=== PATIENT | female | born 1960 | race Caucasian/White ===

== ENCOUNTER 2020-12-04 08:24 | Outpatient (REF) | payer OTHER, SELFPAY ==
--- NOTE | 2020-12-04 08:28 | MM_ITS ---
EXAMINATION: MM SCREENING DIGITAL BREAST TOMOSYNTHESIS, BILATERAL CLINICAL INFORMATION: Screening. Asymptomatic. The lifetime risk of breast cancer based on the Tyrer-Cuzick Model is 5%. COMPARISON: Mammography: 12/04/2019, 11/29/2019, 11/23/2018 TECHNIQUE: Digital breast tomosynthesis is performed in both the craniocaudal and mediolateral oblique views along with computer-aided detection (CAD). Synthesized 2D images are generated from the tomosynthesis. FINDINGS: There are scattered areas of fibroglandular density (ACR BI-RADS breast composition Category b). There are no significant masses, abnormal calcifications, or other abnormalities. No significant changes from prior study. MM/MM tomosynthesis screening BI IMPRESSION: No mammographic evidence of malignancy. ASSESSMENT: BI-RADS 1: Negative RECOMMENDATION: Routine annual mammography screening. This patient's information was entered into a reminder system with a target due date for their next mammogram.
== END 2020-12-04 08:25 | disposition home or self-care (01) ==
LOC: HO.MAMMO 08:24
PROVIDERS: PCP Nurse Practitioner Family; Visit Provider Nurse Practitioner Family
DX: Z12.31 Encounter for screening mammogram for malignant neoplasm of breast (principal)
CPT/HCPCS: 77063; 77067

== ENCOUNTER → 2020-12-10 14:53 | Outpatient (BNVA) | payer OTHER, SELFPAY | PROVIDERS: PCP Internal Medicine; Referring Provider Nurse Practitioner Family; Visit Provider Advanced Practice Midwife | DX: Z76.89 Persons encountering health services in other specified circumstances (principal) ==

== ENCOUNTER 2021-05-20 06:42 | Day surgery (SDC) | payer OTHER, SELFPAY ==
[2021-05-13 09:34] VITALS: BMI 30.6
[2021-05-20 07:22] VITALS: BP 131/82; PULSE 86; RESP 16; TEMP 36.2; O2SAT 96
--- NOTE | 2021-05-20 07:58 | P.CONAN_ITS ---
HPI - Anesthesia Eval Consult details Narrative: 61 yo female patient for colonoscopy FOR[facility]LY [facility] Past Medical History Medical History (Updated 05/20/21 @ 08:04 by Talia Henao) Arthritis Asthma Elevated cholesterol Low back pain Family History Family History Father Colon cancer Family history of problems with anesthesia: No Surgical History Surgical History H/O eye surgery History of total right knee replacement Hx of colonoscopy History of Problems with Anesthesia: No Social History Social History Alcohol intake: current Alcohol intake frequency: a few times a month Patient Tobacco Use Status: Never used Tobacco Use of substances other than those prescribed or required for medical reasons: No Are you DNR?: No Advance Directives: No Advance Directives Information Provided: No Advance Directives on File: No Meds Allergies Allergy/AdvReac Type Severity Reaction Status Date / Time dust Allergy Unknown Uncoded 05/05/20 00:00 grass Allergy Unknown Uncoded 05/05/20 00:00 trees Allergy Unknown Uncoded 05/05/20 00:00 Home Medications Medication Instructions Recorded Confirmed Last Taken Type atorvastatin 20 mg tablet 20 mg PO DAILY 12/10/20 05/13/21 Unknown History montelukast 10 mg tablet 10 mg PO DAILY 12/10/20 Unknown History Elderberry 05/13/21 05/13/21 Unknown History albuterol sulfate 2 puff INHALATION Q4-6H PRN 05/13/21 05/13/21 Unknown History Exam Exam Date and Time: May 20, 2021 0758 Height,Weight and Vital Signs: Height 5 ft 3 in Weight 78.471 kg Last Vital Signs Temp 97.2 F 05/20/21 07:22 Pulse 86 05/20/21 07:22 Resp 16 05/20/21 07:22 BP 131/82 05/20/21 07:22 Pulse Ox 96 05/20/21 07:22 Airway Mallampati Class: II TM Dist: >3cm Neck ROM: Full Heart: RRR Lungs: CTAB Assessment and Plan Assessment Anesthesia Assessment: Anesthesia Plan Discussed and Chart Reviewed Final Anesthetic Review NPO: Yes ASA Class: II Final Preanesthetic Review: No Changes in Pt Med Stat, Meds/Allgs Chart Reviewed, Consent Obtained/Reviewed and Anes Risks/Benef Reviewed Patient Risk: Low Procedure Risk: Low Assessment/Block/Sedation in SS: Assess/Block/Sedation-SS Anesthetic Plan Anesthetic Plan: MAC: Disposition: Standard PACU
--- NOTE | 2021-05-20 08:30 | MHC.SHP ---
Pre-Procedural Eval Section A Date of Service: 05/20/21 The patient is an INPATIENT: No Changes since office visit: No Cold of Flu in the past 2 weeks, No New Medical Problems, No Changes in Medication and No Patient answered all questions The History & Physical has been completed within 30 days and I have reviewed it.: Yes Section B Chief Complaint: screening Allergies: Allergies Allergy/AdvReac Type Severity Reaction Status Date / Time dust Allergy Unknown Uncoded 05/05/20 00:00 grass Allergy Unknown Uncoded 05/05/20 00:00 trees Allergy Unknown Uncoded 05/05/20 00:00 Plan I have reviewed the history and physical and performed a pertinent physical examination on my patient. No changes have occurred unless specified.
[2021-05-20 09:00] VITALS: BP 98/60; PULSE 72; RESP 20; TEMP 36.1; O2SAT 96
--- NOTE | 2021-05-20 09:01 | PM.OP ---
Brief Operative Note Date of Service: 05/20/21 Pre-op diagnosis: screening Post-op diagnosis: same Procedure: colonoscopy Surgeon: Hebert Barrera Was an Visitor Services Representative used for this Procedure?: No Estimated blood loss (mL): 0 Pathology: none sent Condition: stable Disposition: PACU
[2021-05-20 09:15] VITALS: BP 107/66; PULSE 66; RESP 18; O2SAT 98
--- NOTE | 2021-05-20 14:36 | OP_ITS ---
SURGEON: Hebert Barrera MD INDICATIONS: Colon cancer screening and personal history of colon polyps as well as family history of colon cancer. PREOPERATIVE DIAGNOSIS: POSTOPERATIVE DIAGNOSIS: PROCEDURE PERFORMED: Colonoscopy to the terminal ileum. ESTIMATED BLOOD LOSS: COMPLICATIONS: ANESTHESIA: Monitored anesthesia care. ASSISTANTS: SPECIMENS: DESCRIPTION OF PROCEDURE: History and physical was performed. The risks and benefits of the procedure were explained to the patient, and informed consent was obtained. The patient was placed in the left lateral decubitus position. A digital rectal exam was performed and it was found to be normal. The Olympus pediatric video colonoscope was introduced into the rectum and advanced to the cecum without difficulty. The cecum was identified by transillumination, palpation, and identification of the ileocecal valve. Examination was performed. The scope was removed. She tolerated the procedure well and was taken to the recovery area in stable condition. FINDINGS: The terminal ileum was examined and it appeared normal. The visualized colonic mucosa was normal. The quality of the prep was good. No polyps were identified. There was mild sigmoid diverticulosis. Retroflexed examination showed small internal hemorrhoids. IMPRESSION: Normal colonoscopy. RECOMMENDATION: 1. Follow up as needed. 2. Repeat colonoscopy is recommended in 5 years, because of family history. MD LINN De La Torre/KASSANDRAL / [id number]
== END 2021-05-20 13:26 | disposition home or self-care (01) ==
PROVIDERS: PCP Nurse Practitioner Family; Visit Provider Internal Medicine Gastroenterology
PROC: 0DJD8ZZ Inspection of Lower Intestinal Tract, Via Natural or Artificial Opening Endoscopic (ICD-10-PCS; CPT 45378; principal; 2021-05-20 08:10)
DX: Z12.11 Encounter for screening for malignant neoplasm of colon (principal); Z86.010 Personal history of colon polyps; Z80.0 Family history of malignant neoplasm of digestive organs; K57.30 Diverticulosis of large intestine without perforation or abscess without bleeding; K64.8 Other hemorrhoids; J45.909 Unspecified asthma, uncomplicated
CPT/HCPCS: 45378

== ENCOUNTER 2022-03-27 06:01 | Outpatient (REF) | payer OTHER, SELFPAY ==
[2022-03-27 11:26] LABS: MANUAL DIFF FLAG NO
[2022-03-27 11:55] LABS: Basophils Absolute Auto 0.1 X10*3/uL (0.0-0.2); Basophils Percent Auto 0.9 % (0-2); Eosinophils Absolute Auto 0.3 X10*3/uL (0.0-0.4); Eosinophils Percent Auto 4.8 % (0-4); Hematocrit 41.9 % (37.0-47.0); Hemoglobin 13.4 g/dl (12.0-16.0); Imm Gran Abs Auto 0.05 X10*3/uL (0.00-0.03); Imm Gran Pct Auto 0.7 % (0.0-0.4); Lymphocytes Absolute Auto 2.7 X10*3/uL (1.2-4.9); Lymphocytes Percent Auto 38.2 % (20-40); Mean Corpuscular Hemoglobin 29.1 pg (27.0-33.0); Mean Corpuscular Volume 90.9 fL (80.0-98.0); Mean Platelet Volume 9.7 fL (9.4-12.3); Monocytes Absolute Auto 0.6 X10*3/uL (0.1-1.2); Monocytes Percent Auto 8.2 % (2-11); Neutrophils Absolute Auto 3.3 x10*3/uL (2.0-8.3); Neutrophils Percent Auto 47.2 % (45-73); Platelet Count 300 X10*3/uL (160-400); Red Blood Count 4.61 X10*6/uL (4.20-5.50); Red Cell Distribution Width 12.6 % (11.0-16.0)
[2022-03-27 12:08] LABS: Alanine Aminotransferase 20 U/L (0-31); Albumin Level 4.1 g/dL (3.5-5.0); Alkaline Phosphatase 91 U/L (39-117); Anion Gap 13 (12-20); Aspartate Amino Transferase 21 U/L (5-31); Bilirubin Total 0.5 mg/dL (0.0-1.0); Blood Urea Nitrogen 16 mg/dL (9-16); Calcium 9.3 mg/dL (8.4-10.2); Carbon Dioxide 24 mmol/L (22-29); Chloride 108 mmol/L (96-108); Cholesterol 289 mg/dL; Estimated Glomerular Filt Rate > 60; Glucose Random 107 mg/dL (60-115); HDL Cholesterol 50 mg/dL; LDL Cholesterol Calculated 212 mg/dl; Potassium 4.3 mmol/L (3.3-5.1); Sodium 141 mmol/L (135-145); Total Protein 7.4 g/dL (6.5-8.0); Triglycerides 137 mg/dL
== END 2022-03-27 06:02 | disposition home or self-care (01) ==
LOC: HO.HMGCLDS 06:01
PROVIDERS: Visit Provider Nurse Practitioner Family
DX: E78.2 Mixed hyperlipidemia (principal)
CPT/HCPCS: 36415; 80053; 80061; 85025

== ENCOUNTER 2023-04-05 11:10 | Emergency (ER) | payer OTHER, SELFPAY ==
--- NOTE | ~2023-04-05 | CT_ITS ---
EXAMINATION: CT ABDOMEN AND PELVIS WITHOUT CONTRAST CLINICAL INFORMATION: Left lower quadrant pain. COMPARISON: None available. TECHNIQUE: Multidetector volumetric imaging was performed from the superior aspect of the liver through the pubic symphysis. Sagittal and coronal reformatted images were obtained on the technologist's workstation. This CT examination was performed using dose optimization techniques as appropriate, variously including the following: *Automated exposure control *Adjustment of mA and/or kV according to patient size (this includes techniques or standardized protocols for targeted exams where dose is matched to indication/reason for exam; i.e. extremities or head) *Use of iterative reconstruction technique DLP: 530 mGy-cm FINDINGS: The lack of intravenous contrast limits evaluation of the solid visceral organs including the liver, spleen, pancreas, and kidneys. LUNG BASES: Calcified granuloma in the right lung base. Streaky opacities in the right lower lobe, likely representing atelectases or scarring. No focal consolidation or pleural effusion. LIVER, GALLBLADDER, AND BILIARY TREE: The noncontrast liver is normal in size, shape, and attenuation. No focal hepatic lesion or biliary ductal dilatation is present. The gallbladder is unremarkable with no evidence of radiopaque gallstones, gallbladder wall thickening, or obvious pericholecystic inflammatory changes. PANCREAS: Unremarkable. SPLEEN: Unremarkable. ADRENAL GLANDS: Unremarkable. KIDNEYS AND URETERS: The kidneys are normal in size, shape, and attenuation. No hydronephrosis, hydroureter, or calculi seen. No perinephric stranding. BLADDER: Unremarkable. GASTROINTESTINAL TRACT: The stomach and the small bowel are nondilated. No findings to suspect acute appendicitis. Colonic diverticulosis. Pericolonic fat stranding and free fluid in the sigmoid. The immediately adjacent left ovary is asymmetrically enlarged. There is additional fat stranding and free fluid in the left hemipelvis. No evidence of bowel obstruction, free air nor extraluminal organized collection. ABDOMINAL WALL: No significant hernia is appreciated. LYMPH NODES: No lymphadenopathy. VASCULAR: Normal caliber of the abdominal aorta. Atherosclerotic disease. PELVIC VISCERA: As above, asymmetric enlargement of the left ovary with surrounding inflammatory changes in very close proximity with the sigmoid colon. OSSEOUS STRUCTURES: No acute or aggressive appearing osseous abnormalities. Degenerative changes of the spine. CT/CT abdomen pelvis wo IV con IMPRESSION: Findings are most suggestive of acute sigmoid diverticulitis. The left ovary is adjacent to the sigmoid colon and it is asymmetrically enlarged with surrounding fat stranding and free fluid likely related with reactive changes in the setting of diverticulitis. Alternatively although less likely, an acute ovarian pathology such as infection or torsion could be present, clinical correlation is ultimately needed. No evidence of free air or organized abdominopelvic collection.
--- NOTE | ~2023-04-05 | US_ITS ---
EXAMINATION: US PELVIS CLINICAL INFORMATION: Left lower abdominal pain, abnormal ovary on CT COMPARISON: CT dated 04/05/2023 TECHNIQUE: Ultrasound of the pelvis is performed using both transabdominal and transvaginal transducers along with Doppler. Transvaginal imaging is performed due to inadequate visualization transabdominally. FINDINGS: The uterus is measuring 5.5 x 2.3 x 3.7 cm. The thickness in the distal canal is 5 mm. The canal demonstrates several areas of echogenicity. These this may represent synechiae. There is also hyperechogenicity Route the myometrium of uncertain etiology. On review of the CT I do not believe this represents calcium. No defined fibroid is seen. The right ovary is measuring 1.5 x 1.7 x 1.3 cm. Volume 2 mL. Normal ovarian vascularity. Arterial and venous The left ovary is measuring 3.1 x 2.5 x 1.7 cm. Volume 6 mL. This is seen transabdominally only. There is venous vascularity demonstrated. 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 US/US pelvic and transvaginal IMPRESSION: The left ovary is mildly prominent compared to the right. There is venous vascularity demonstrated but no arterial vascularity demonstrated here. The right ovary is within normal limits. No free fluid is seen. As described borderline dilatation of the distal endometrial canal in a postmenopausal patient at 5 mm. The canal is otherwise characterized by several areas of hyperechogenicity which may represent synechiae. There is also hyperechogenicity in the myometrium of uncertain etiology but this does not appear masslike.
--- NOTE | ~2023-04-05 | US_ITS ---
EXAMINATION: ULTRASOUND OF THE PELVIS CLINICAL INFORMATION: Evaluate for left ovarian torsion.. COMPARISON: None. TECHNIQUE: Transabdominal and transvaginal pelvic ultrasound. Doppler evaluation with spectral analysis was performed. A transvaginal study was performed in addition to the transabdominal study which did not yield an adequate examination of the uterus and ovaries due to superimposed distended gas-filled loops of bowel. FINDINGS: The uterus is not evaluated on this study. The ovaries bilaterally are visualized, with the right ovary measuring 1.5 x 0.8 x 1.6 cm and the left ovary measuring 3.2 x 2.3 x 2 cm. There are normal arterial and venous spectral waveforms bilaterally. No adnexal mass or free fluid collection seen. US/US pelvic and transvaginal IMPRESSION: Similar appearance to the prior study. The left ovary remains prominent compared to the right. Normal Doppler evaluation..
--- NOTE | ~2023-04-05 | US_ITS ---
EXAMINATION: ULTRASOUND OF THE PELVIS CLINICAL INFORMATION: Evaluate for left ovarian torsion.. COMPARISON: None. TECHNIQUE: Transabdominal and transvaginal pelvic ultrasound. Doppler evaluation with spectral analysis was performed. A transvaginal study was performed in addition to the transabdominal study which did not yield an adequate examination of the uterus and ovaries due to superimposed distended gas-filled loops of bowel. FINDINGS: The uterus is not evaluated on this study. The ovaries bilaterally are visualized, with the right ovary measuring 1.5 x 0.8 x 1.6 cm and the left ovary measuring 3.2 x 2.3 x 2 cm. There are normal arterial and venous spectral waveforms bilaterally. No adnexal mass or free fluid collection seen. US/US pelvic ovarian doppler IMPRESSION: Similar appearance to the prior study. The left ovary remains prominent compared to the right. Normal Doppler evaluation..
--- NOTE | ~2023-04-05 | US_ITS ---
EXAMINATION: US PELVIS CLINICAL INFORMATION: Left lower abdominal pain, abnormal ovary on CT COMPARISON: CT dated 04/05/2023 TECHNIQUE: Ultrasound of the pelvis is performed using both transabdominal and transvaginal transducers along with Doppler. Transvaginal imaging is performed due to inadequate visualization transabdominally. FINDINGS: The uterus is measuring 5.5 x 2.3 x 3.7 cm. The thickness in the distal canal is 5 mm. The canal demonstrates several areas of echogenicity. These this may represent synechiae. There is also hyperechogenicity Route the myometrium of uncertain etiology. On review of the CT I do not believe this represents calcium. No defined fibroid is seen. The right ovary is measuring 1.5 x 1.7 x 1.3 cm. Volume 2 mL. Normal ovarian vascularity. Arterial and venous The left ovary is measuring 3.1 x 2.5 x 1.7 cm. Volume 6 mL. This is seen transabdominally only. There is venous vascularity demonstrated. 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 US/US pelvic ovarian doppler IMPRESSION: The left ovary is mildly prominent compared to the right. There is venous vascularity demonstrated but no arterial vascularity demonstrated here. The right ovary is within normal limits. No free fluid is seen. As described borderline dilatation of the distal endometrial canal in a postmenopausal patient at 5 mm. The canal is otherwise characterized by several areas of hyperechogenicity which may represent synechiae. There is also hyperechogenicity in the myometrium of uncertain etiology but this does not appear masslike.
[2023-04-05 11:44] VITALS: BP 152/91; PULSE 112; RESP 19; TEMP 36.6; O2SAT 95; BMI 30.8
--- NOTE | 2023-04-05 11:45 | ED.ABDPAIN ---
HPI - Abdominal Pain General Chief Complaint: Abdominal Pain <KENDRA Howard - Last Filed: 04/05/23 11:48> Stated Complaint: lower left side pain <KENDRA Howard - Last Filed: 04/05/23 11:48> Time Seen by Provider: 04/05/23 13:59 <KENDRA Howard - Last Filed: 04/05/23 11:48> Source: patient and family (, Zac) <Lenard King MD - Last Filed: 04/05/23 20:15> Mode of arrival: ambulatory <Lenard King MD - Last Filed: 04/05/23 20:15> Limitations: no limitations <Lneard King MD - Last Filed: 04/05/23 20:15> History of Present Illness HPI narrative: 63-year-old female who presents emergency department for evaluation left lower quadrant pain. She states that she has chronic, intermittent, left lower quadrant pain times years. She states that pain is often brief resolved without treatment. She states that 2 days prior to evaluation she had a sudden onset of severe left lower quadrant pain the pain is been constant since that time. She describes the pain is a sharp, pressure-like pain which is 10/10. The patient states the pain is worse with movement. She states she has been able to drink fluid today but she has lost her appetite. She had a normal bowel movement yesterday, no diarrhea and no blood in her bowel movements. She has noted urinary frequency but no dysuria. The patient states that on Sunday, 5 days prior to evaluation she developed left-sided ear pain. The next day she was seen in urgent care clinic and started on amoxicillin and prednisone. She states that her ear pain is feeling better but she still has decreased hearing in her left ear compared to the right. <Lenard King MD - Last Filed: 04/05/23 20:15> Related Data Home Medications: Home Medications Medication Instructions Recorded Confirmed Elderberry 05/13/21 05/13/21 albuterol sulfate 90 mcg/actuation 2 puff inhalation Q4-6H PRN 05/13/21 05/13/21 aerosol inhaler Shortness Of Breath Or Wheezing rosuvastatin 10 mg tablet 10 mg PO BEDTIME 04/02/23 Previous Rx's Medication Instructions Recorded amoxicillin 875 mg-potassium 1 tab PO BID 10 days #20 tabs 04/02/23 clavulanate 125 mg tablet prednisone 20 mg tablet 40 mg PO DAILY 5 days #10 tabs 04/02/23 amoxicillin 875 mg-potassium 1 tab PO Q12H 7 days #14 tabs 04/05/23 clavulanate 125 mg tablet morphine 15 mg immediate release 15 mg PO Q4-6H PRN pain #10 tabs 04/05/23 tablet <KENDRA Howard - Last Filed: 04/05/23 11:48> Allergies/Adverse Reactions: Allergies Allergy/AdvReac Type Severity Reaction Status Date / Time dust Allergy Unknown Uncoded 05/05/20 00:00 grass Allergy Unknown Uncoded 05/05/20 00:00 trees Allergy Unknown Uncoded 05/05/20 00:00 <KENDRA Howard - Last Filed: 04/05/23 11:48> Review of Systems Review of Systems Yes all other systems are reviewed and are negative <Lenard King MD - Last Filed: 04/05/23 20:15> [facility] Past Medical History [facility] Narrative: Social history: The patient denies tobacco use. She does drink alcohol and she had 3 beers to drink on Sunday (5 days prior to evaluation). She denies drug use. Family history: She states that her father had colon cancer at age 47 and she has been getting colonoscopies every 5 years. She states that her last colonoscopy was 2-3 years prior to evaluation. <Lenard King MD - Last Filed: 04/05/23 20:15> Medical History: Medical History Arthritis Asthma Elevated cholesterol Low back pain <KENDRA Howard - Last Filed: 04/05/23 11:48> Surgical History: Surgical History H/O eye surgery History of total right knee replacement Hx of colonoscopy <KENDRA Howard - Last Filed: 04/05/23 11:48> Family History Family History: Family History Father Colon cancer <KENDRA Howard - Last Filed: 04/05/23 11:48> Social History Social History: Social History Alcohol intake: current Alcohol intake frequency: a few times a month Patient Tobacco Use Status: Never used Tobacco Advance Directives: No Advance Directives Information Provided: No <KENDRA Howard - Last Filed: 04/05/23 11:48> Physical Exam ED Vital Signs: Vital Signs - 24 hr 04/05/23 11:44 04/05/23 16:00 04/05/23 19:13 Temperature 97.8 F 98.7 F 98.4 F Pulse Rate 112 H 86 84 Respiratory Rate 19 16 16 Blood Pressure 152/91 H 120/63 94/57 L Pulse Oximetry 95 97 93 Oxygen Delivery Method Room Air Room Air Room Air 04/05/23 19:28 Temperature Pulse Rate 84 Respiratory Rate 18 Blood Pressure 107/45 L Pulse Oximetry 94 Oxygen Delivery Method Room Air BMI result Body Mass Index 30.8 <KENDRA Howard - Last Filed: 04/05/23 11:48> Vital Signs - 24 hr 04/05/23 11:44 04/05/23 16:00 04/05/23 19:13 Temperature 97.8 F 98.7 F 98.4 F Pulse Rate 112 H 86 84 Respiratory Rate 19 16 16 Blood Pressure 152/91 H 120/63 94/57 L Pulse Oximetry 95 97 93 Oxygen Delivery Method Room Air Room Air Room Air 04/05/23 19:28 Temperature Pulse Rate 84 Respiratory Rate 18 Blood Pressure 107/45 L Pulse Oximetry 94 Oxygen Delivery Method Room Air BMI result Body Mass Index 30.8 <Lenard King MD - Last Filed: 04/05/23 20:15> Const General: cooperative and no acute distress <Lenard King MD - Last Filed: 04/05/23 20:15> Orientation/consciousness: oriented to person and oriented to place <Lenard King MD - Last Filed: 04/05/23 20:15> Limitations: no limitations <MD Sola Andersen Last Filed: 04/05/23 20:15> HENMT Head: Yes normal to inspection, Yes normocephalic and Yes atraumatic <MD Sola Andersen Last Filed: 04/05/23 20:15> Ears: external ears normal <MD Sola Andersen Last Filed: 04/05/23 20:15> General nose exam: Normal external nose present <MD Sola Andersen Last Filed: 04/05/23 20:15> Face and sinus: Yes normal facial exam <MD Sola Andersen Last Filed: 04/05/23 20:15> Mouth: Normal oral and palatal mucosa present <MD Sola Andersen Last Filed: 04/05/23 20:15> Throat: Yes posterior oropharynx normal <MD Sola Andersen Last Filed: 04/05/23 20:15> Eyes General: appearance normal, both eyes and all related structures <MD Sola Andersen Last Filed: 04/05/23 20:15> Pupils: Equal, round and reactive pupils present <MD Sola Andersen Last Filed: 04/05/23 20:15> Neck Neck: Yes normal visual inspection, Yes no lymphadenopathy, Yes trachea midline and Yes supple <MD Sola Andersen Last Filed: 04/05/23 20:15> Chest Chest palpation & inspection: normal inspection of the chest and normal palpation of entire chest wall <MD Sola Andersen Last Filed: 04/05/23 20:15> Resp Effort & Inspection: normal respiratory effort and able to speak in complete sentences <MD Sola Andersen Last Filed: 04/05/23 20:15> Auscultation: clear to auscultation bilaterally <MD Sola Andersen Last Filed: 04/05/23 20:15> Cardio Rate: regular rate <MD Sola Andersen Last Filed: 04/05/23 20:15> Rhythm: regular rhythm <MD Sola Andersen Last Filed: 04/05/23 20:15> Heart sounds: S1 normal heart sound present, S2 normal heart sound present and no murmurs <Lenard King MD - Last Filed: 04/05/23 20:15> GI Inspection: Yes normal to inspection <MD Sola Andersen Last Filed: 04/05/23 20:15> Palpation (GI): Soft to palpation, Tenderness to palpation present (GI) (Moderate) in the LLQ (Moderate to severe) and in the RLQ and no guarding <MD Sola Andersen Last Filed: 04/05/23 20:15> Auscultation: normal bowel sounds <MD Sola Andersen Last Filed: 04/05/23 20:15> General: Yes no CVA tenderness <MD Sola Andersen Last Filed: 04/05/23 20:15> Back/Spine/Pelvis Back: no CVA tenderness <Lenard King MD - Last Filed: 04/05/23 20:15> Skin General skin exam: no rashes or lesions noted <MD Sola Andersen Last Filed: 04/05/23 20:15> Neuro General: oriented to person and oriented to place <MD Sola Andersen Last Filed: 04/05/23 20:15> Cranial nerves: Yes CN's II-XII intact bilaterally and Yes Equal, round and reactive pupils present <MD Sola Andersen Last Filed: 04/05/23 20:15> Cognition (Neuro): normal cognition <MD Sola Andersen Last Filed: 04/05/23 20:15> Motor exam (neuro): 5/5 motor strength present throughout <MD Sola Andersen Last Filed: 04/05/23 20:15> Extrem General: Yes normal to inspection <MD Sola Andersen Last Filed: 04/05/23 20:15> Psych Appearance: grossly normal <MD Sola Andersen Last Filed: 04/05/23 20:15> Speech and movement: Normal speech and movement present <MD Sola Andersen Last Filed: 04/05/23 20:15> Affect: normal affect <Lenard King MD - Last Filed: 04/05/23 20:15> Attitude: cooperative <Lenard King MD - Last Filed: 04/05/23 20:15> Course Course Course Narrative: This is an RME: Additional HPI, ROS, PE not included below will be deferred to primary provider. 63 year old female hx of HLD presents w/ LLQ pain stabbing constant since sunday, 2 days ago. Last colonoscopy 2 years ago and normal. No nausea, vomiting, fevers, chills, cp, sob, URI sx. Patient on augmentin for otitis media. No hx of diverticulitis PE- LLQ tenderness Plan- lab, ua, imaging <KENDRA Howard - Last Filed: 04/05/23 11:48> Medical Decision Making Medical Decision Making MDM Narrative: 63-year-old female who presents emergency department for evaluation of left lower quadrant pain x2 days, patient has a history of intermittent chronic pain in the left lower quadrant, this pain started 2 days suddenly, was severe on onset and has been constant which is unusual for her pain. Patient has also had a decreased appetite with no change in bowel movements. She has had no fever chills. Vital signs revealed an elevated pulse of 112 and an elevated blood pressure 152/91. Exam did reveal moderate right lower quadrant tenderness and moderate to severe left lower quadrant tenderness. Patient has been taking amoxicillin and prednisone for 2 days for left otitis media. Patient's left TM is erythematous with loss of landmarks. Provider at triage ordered a CBC, CMP, lipase, magnesium, urinalysis, quantitative beta-hCG and a CT scan of the abdomen pelvis without IV contrast. 1438: My interpretation patient's laboratory evaluation is as follows elevated white blood count [id number] could be secondary to infection verses prednisone. Glucose elevated 118. LFTs and lipase were normal. CT scan of the abdomen pelvis without IV contrast was interpreted by the radiologist as left sigmoid diverticulitis with possible enlarged left ovary rule out ovarian torsion. I suspect the patient most likely has diverticulitis however I did order a pelvic ultrasound and duplex ultrasound vaginal probe to rule out torsion. Patient was treated with Unasyn 3 g IV, normal saline x1 L, Toradol 15 mg IV and Zofran 4 mg IV. 2007: The patient's initial duplex ultrasound revealed venous blood flow only to the left ovary with no arterial blood flow. I did discuss this finding with our bowling ball molder Dr. Gill who felt that this finding did not make logical sense in he requested that we repeat the duplex ultrasound. I did discuss this with the geotechnical laboratory technician inch she states that there was a lot of gas which hindered her ability to see the left ovary and she was willing to repeat the study. The repeat study did reveal normal blood flow both arterial and venous to both ovaries which is very reassuring Patient will be treated with Augmentin 875/125 q.12 hours for 7 days for her diverticulitis. She was advised to take Tylenol and ibuprofen and for pain not relieved by these medications she was prescribed morphine. She was given printed and verbal instructions discharged home <Lenard King MD - Last Filed: 04/05/23 20:15> Differential Diagnosis Differential diagnosis includes was not limited to adverse reaction to amoxicillin/prednisone, perforation, diverticulitis, ovarian cyst, ovarian torsion, appendicitis, UTI, viral since <Lenard King MD - Last Filed: 04/05/23 20:15> Admission/Observation Consideration of admission/observation: Escalation of care including admission/observation considered <Lenard King MD - Last Filed: 04/05/23 20:15> Lab Data [facility] Lab Attestation statement: I reviewed the patient's lab results. <Lenard King MD - Last Filed: 04/05/23 20:15> See MDM <Lenard King MD - Last Filed: 04/05/23 20:15> Result Diagrams: 04/05/23 13:05 04/05/23 13:05 <KENDRA Howard - Last Filed: 04/05/23 11:48> Labs: Lab Results 04/05/23 04/05/23 04/05/23 Range/Units 13:04 13:05 13:05 WBC 22.3 H (4.8-10.8) X10*3/uL RBC 4.98 (4.20-5.50) X10*6/uL Hgb 14.3 (12.0-16.0) g/dl Hct 42.7 (37.0-47.0) % MCV 85.7 (80.0-98.0) fL MCH 28.7 (27.0-33.0) pg MCHC 33.5 (31.0-35.0) g/dl RDW 12.6 (11.0-16.0) % Plt Count 300 (160-400) X10*3/uL MPV 8.8 L (9.4-12.3) fL Immature Gran % (Auto) 1.0 H (0.0-0.4) % Neut % (Auto) 81.7 H (45-73) % Lymph % (Auto) 11.0 L (20-40) % [place] % (Auto) 6.1 (2-11) % Eos % (Auto) 0.0 (0-4) % Baso % (Auto) 0.2 (0-2) % Lymph # (Auto) 2.5 (1.2-4.9) X10*3/uL [place] # (Auto) 1.4 H (0.1-1.2) X10*3/uL Eos # (Auto) 0.0 (0.0-0.4) X10*3/uL Baso # (Auto) 0.1 (0.0-0.2) X10*3/uL Abs Immat Gran (auto) 0.22 H (0.00-0.03) X10*3/uL Absolute Neuts (auto) 18.2 H (2.0-8.3) x10*3/uL Absolute Nucleated RBC 0.000 (0.0-0.012) X10*3/uL Nucleated RBC % (auto) 0.0 (0.0-0.2) /100WBC Sodium 141 (135-145) mmol/L Potassium 4.0 (3.3-5.1) mmol/L Chloride 104 (96-108) mmol/L Carbon Dioxide 27 (22-29) mmol/L Anion Gap 14 (12-20) BUN 18 H (9-16) mg/dL Creatinine 0.74 (0.5-1.4) mg/dL Estim Creat Clear Calc 75.3 Estimated GFR > 60 Random Glucose 118 H (60-115) mg/dL Lactic Acid (0.5-2.0) mmol/L Calcium 9.8 (8.4-10.2) mg/dL Magnesium 2.3 (1.6-2.6) mg/dL Total Bilirubin 0.7 (0.0-1.0) mg/dL AST 16 (5-31) U/L ALT 15 (0-31) U/L Alkaline Phosphatase 86 (39-117) U/L Total Protein 7.8 (6.5-8.0) g/dL Albumin 4.5 (3.5-5.0) g/dL Lipase 32 (8-78) U/L Beta HCG, Quant 3 mIU/mL Urine Color Urine Appearance Urine pH (5.0-9.0) Ur Specific Alexis (1.005-1.025) Urine Protein (Neg-Trace) mg/dL Urine Glucose (UA) (Negative) mg/dL Urine Ketones (Negative) mg/dL Urine Blood (Negative) Urine Nitrite (Negative) Ur Leukocyte Esterase (Negative) Urine RBC (0-2) /HPF Urine WBC (0-5) /HPF Ur Squamous Epith Cells (0-2) /HPF Urine Bacteria (None Seen) Hyaline Casts (0-2) /LPF COVID-19 (MINOO) Negative (Negative) COVID-19 Clin Com See Note 04/05/23 04/05/23 Range/Units 13:05 14:25 WBC (4.8-10.8) X10*3/uL RBC (4.20-5.50) X10*6/uL Hgb (12.0-16.0) g/dl Hct (37.0-47.0) % MCV (80.0-98.0) fL MCH (27.0-33.0) pg MCHC (31.0-35.0) g/dl RDW (11.0-16.0) % Plt Count (160-400) X10*3/uL MPV (9.4-12.3) fL Immature Gran % (Auto) (0.0-0.4) % Neut % (Auto) (45-73) % Lymph % (Auto) (20-40) % [place] % (Auto) (2-11) % Eos % (Auto) (0-4) % Baso % (Auto) (0-2) % Lymph # (Auto) (1.2-4.9) X10*3/uL [place] # (Auto) (0.1-1.2) X10*3/uL Eos # (Auto) (0.0-0.4) X10*3/uL Baso # (Auto) (0.0-0.2) X10*3/uL Abs Immat Gran (auto) (0.00-0.03) X10*3/uL Absolute Neuts (auto) (2.0-8.3) x10*3/uL Absolute Nucleated RBC (0.0-0.012) X10*3/uL Nucleated RBC % (auto) (0.0-0.2) /100WBC Sodium (135-145) mmol/L Potassium (3.3-5.1) mmol/L Chloride (96-108) mmol/L Carbon Dioxide (22-29) mmol/L Anion Gap (12-20) BUN (9-16) mg/dL Creatinine (0.5-1.4) mg/dL Estim Creat Clear Calc Estimated GFR Random Glucose (60-115) mg/dL Lactic Acid 1.5 (0.5-2.0) mmol/L Calcium (8.4-10.2) mg/dL Magnesium (1.6-2.6) mg/dL Total Bilirubin (0.0-1.0) mg/dL AST (5-31) U/L ALT (0-31) U/L Alkaline Phosphatase (39-117) U/L Total Protein (6.5-8.0) g/dL Albumin (3.5-5.0) g/dL Lipase (8-78) U/L Beta HCG, Quant mIU/mL Urine Color Dark Yellow Urine Appearance Clear Urine pH 5.5 (5.0-9.0) Ur Specific Alexis 1.025 (1.005-1.025) Urine Protein Trace (Neg-Trace) mg/dL Urine Glucose (UA) Negative (Negative) mg/dL Urine Ketones 15 (Negative) mg/dL Urine Blood Negative (Negative) Urine Nitrite Negative (Negative) Ur Leukocyte Esterase Trace H (Negative) Urine RBC 0-2 (0-2) /HPF Urine WBC 0-5 (0-5) /HPF Ur Squamous Epith Cells 0-2 (0-2) /HPF Urine Bacteria None Seen (None Seen) Hyaline Casts 0-2 (0-2) /LPF COVID-19 (MINOO) (Negative) COVID-19 Clin Com <KENDRA Howard - Last Filed: 04/05/23 11:48> Lab Results 04/05/23 04/05/23 04/05/23 Range/Units 13:04 13:05 13:05 WBC 22.3 H (4.8-10.8) X10*3/uL RBC 4.98 (4.20-5.50) X10*6/uL Hgb 14.3 (12.0-16.0) g/dl Hct 42.7 (37.0-47.0) % MCV 85.7 (80.0-98.0) fL MCH 28.7 (27.0-33.0) pg MCHC 33.5 (31.0-35.0) g/dl RDW 12.6 (11.0-16.0) % Plt Count 300 (160-400) X10*3/uL MPV 8.8 L (9.4-12.3) fL Immature Gran % (Auto) 1.0 H (0.0-0.4) % Neut % (Auto) 81.7 H (45-73) % Lymph % (Auto) 11.0 L (20-40) % [place] % (Auto) 6.1 (2-11) % Eos % (Auto) 0.0 (0-4) % Baso % (Auto) 0.2 (0-2) % Lymph # (Auto) 2.5 (1.2-4.9) X10*3/uL [place] # (Auto) 1.4 H (0.1-1.2) X10*3/uL Eos # (Auto) 0.0 (0.0-0.4) X10*3/uL Baso # (Auto) 0.1 (0.0-0.2) X10*3/uL Abs Immat Gran (auto) 0.22 H (0.00-0.03) X10*3/uL Absolute Neuts (auto) 18.2 H (2.0-8.3) x10*3/uL Absolute Nucleated RBC 0.000 (0.0-0.012) X10*3/uL Nucleated RBC % (auto) 0.0 (0.0-0.2) /100WBC Sodium 141 (135-145) mmol/L Potassium 4.0 (3.3-5.1) mmol/L Chloride 104 (96-108) mmol/L Carbon Dioxide 27 (22-29) mmol/L Anion Gap 14 (12-20) BUN 18 H (9-16) mg/dL Creatinine 0.74 (0.5-1.4) mg/dL Estim Creat Clear Calc 75.3 Estimated GFR > 60 Random Glucose 118 H (60-115) mg/dL Lactic Acid (0.5-2.0) mmol/L Calcium 9.8 (8.4-10.2) mg/dL Magnesium 2.3 (1.6-2.6) mg/dL Total Bilirubin 0.7 (0.0-1.0) mg/dL AST 16 (5-31) U/L ALT 15 (0-31) U/L Alkaline Phosphatase 86 (39-117) U/L Total Protein 7.8 (6.5-8.0) g/dL Albumin 4.5 (3.5-5.0) g/dL Lipase 32 (8-78) U/L Beta HCG, Quant 3 mIU/mL Urine Color Urine Appearance Urine pH (5.0-9.0) Ur Specific Alexis (1.005-1.025) Urine Protein (Neg-Trace) mg/dL Urine Glucose (UA) (Negative) mg/dL Urine Ketones (Negative) mg/dL Urine Blood (Negative) Urine Nitrite (Negative) Ur Leukocyte Esterase (Negative) Urine RBC (0-2) /HPF Urine WBC (0-5) /HPF Ur Squamous Epith Cells (0-2) /HPF Urine Bacteria (None Seen) Hyaline Casts (0-2) /LPF COVID-19 (MINOO) Negative (Negative) COVID-19 Clin Com See Note 04/05/23 04/05/23 Range/Units 13:05 14:25 WBC (4.8-10.8) X10*3/uL RBC (4.20-5.50) X10*6/uL Hgb (12.0-16.0) g/dl Hct (37.0-47.0) % MCV (80.0-98.0) fL MCH (27.0-33.0) pg MCHC (31.0-35.0) g/dl RDW (11.0-16.0) % Plt Count (160-400) X10*3/uL MPV (9.4-12.3) fL Immature Gran % (Auto) (0.0-0.4) % Neut % (Auto) (45-73) % Lymph % (Auto) (20-40) % [place] % (Auto) (2-11) % Eos % (Auto) (0-4) % Baso % (Auto) (0-2) % Lymph # (Auto) (1.2-4.9) X10*3/uL [place] # (Auto) (0.1-1.2) X10*3/uL Eos # (Auto) (0.0-0.4) X10*3/uL Baso # (Auto) (0.0-0.2) X10*3/uL Abs Immat Gran (auto) (0.00-0.03) X10*3/uL Absolute Neuts (auto) (2.0-8.3) x10*3/uL Absolute Nucleated RBC (0.0-0.012) X10*3/uL Nucleated RBC % (auto) (0.0-0.2) /100WBC Sodium (135-145) mmol/L Potassium (3.3-5.1) mmol/L Chloride (96-108) mmol/L Carbon Dioxide (22-29) mmol/L Anion Gap (12-20) BUN (9-16) mg/dL Creatinine (0.5-1.4) mg/dL Estim Creat Clear Calc Estimated GFR Random Glucose (60-115) mg/dL Lactic Acid 1.5 (0.5-2.0) mmol/L Calcium (8.4-10.2) mg/dL Magnesium (1.6-2.6) mg/dL Total Bilirubin (0.0-1.0) mg/dL AST (5-31) U/L ALT (0-31) U/L Alkaline Phosphatase (39-117) U/L Total Protein (6.5-8.0) g/dL Albumin (3.5-5.0) g/dL Lipase (8-78) U/L Beta HCG, Quant mIU/mL Urine Color Dark Yellow Urine Appearance Clear Urine pH 5.5 (5.0-9.0) Ur Specific Alexis 1.025 (1.005-1.025) Urine Protein Trace (Neg-Trace) mg/dL Urine Glucose (UA) Negative (Negative) mg/dL Urine Ketones 15 (Negative) mg/dL Urine Blood Negative (Negative) Urine Nitrite Negative (Negative) Ur Leukocyte Esterase Trace H (Negative) Urine RBC 0-2 (0-2) /HPF Urine WBC 0-5 (0-5) /HPF Ur Squamous Epith Cells 0-2 (0-2) /HPF Urine Bacteria None Seen (None Seen) Hyaline Casts 0-2 (0-2) /LPF COVID-19 (MINOO) (Negative) COVID-19 Clin Com <Lenard King MD - Last Filed: 04/05/23 20:15> Radiology Impression Discussion of test interpretation with radiology: I have reviewed the radiologist's reading. <Lenard King MD - Last Filed: 04/05/23 20:15> Radiologist Impression: CT abdomen pelvis wo IV con ...GASTROINTESTINAL TRACT: The stomach and the small bowel are nondilated. No findings to suspect acute appendicitis. Colonic diverticulosis. Pericolonic fat stranding and free fluid in the sigmoid. The immediately adjacent left ovary is asymmetrically enlarged. There is additional fat stranding and free fluid in the left hemipelvis. No evidence of bowel obstruction, free air nor extraluminal organized collection. IMPRESSION: Findings are most suggestive of acute sigmoid diverticulitis. The left ovary is adjacent to the sigmoid colon and it is asymmetrically enlarged with surrounding fat stranding and free fluid likely related with reactive changes in the setting of diverticulitis. Alternatively although less likely, an acute ovarian pathology such as infection or torsion could be present, clinical correlation is ultimately needed. No evidence of free air or organized abdominopelvic collection. Dictated By:Lulu Aly US pelvic and transvaginal -initial study IMPRESSION: The left ovary is mildly prominent compared to the right. There is venous vascularity demonstrated but no arterial vascularity demonstrated here. The right ovary is within normal limits. No free fluid is seen. As described borderline dilatation of the distal endometrial canal in a postmenopausal patient at 5 mm. The canal is otherwise characterized by several areas of hyperechogenicity which may represent synechiae. There is also hyperechogenicity in the myometrium of uncertain etiology but this does not appear masslike. Dictated By:Brien Rivas MD US pelvic and transvaginal-repeat study IMPRESSION: Similar appearance to the prior study. The left ovary remains prominent compared to the right. Normal Doppler evaluation.. Dictated By:Leodan Aguirre MD <Lenard Knig MD - Last Filed: 04/05/23 20:15> Independent Historian Clinical information obtained from an independent historian. History obtained from or confirmed by: Spouse <Lenard King MD - Last Filed: 04/05/23 20:15> External Record Review External record reviewed: Office record ([place] office note, GI colonoscopy done 05/20/2021-for screening for neoplasm-negative) <Lenard King MD - Last Filed: 04/05/23 20:15> Medications Administered Discontinued Medications Generic Name Dose Route Start Last Admin Trade Name Freq PRN Reason Stop Dose Admin Sodium Chloride 1,000 mls @ 999 mls/hr 04/05/23 14:19 04/05/23 16:45 Ns IV 04/05/23 15:19 Infused .Q1H1M STA Infusion Ampicillin Sodium/Sulbactam 100 mls @ 200 mls/hr 04/05/23 14:19 04/05/23 16:45 Sodium 3 gm/ Sodium Chloride IV 04/05/23 14:48 Infused ONCE STA Infusion Ketorolac Tromethamine 15 mg 04/05/23 14:19 04/05/23 14:37 Ketorolac Tromethamine 15 Mg/Ml Vial IVPUSH 04/05/23 14:20 15 mg ONCE STA Administration Ketorolac Tromethamine 15 mg 04/05/23 17:40 04/05/23 17:44 Ketorolac Tromethamine 15 Mg/Ml Vial IVPUSH 04/05/23 17:41 15 mg ONCE STA Administration Ondansetron HCl 4 mg 04/05/23 14:19 04/05/23 14:37 Ondansetron Hcl 4 Mg/2 Ml Vial IVPUSH 04/05/23 14:20 4 mg ONCE ONE Administration <KENDRA Howard - Last Filed: 04/05/23 11:48> Medications Administered Discontinued Medications Generic Name Dose Route Start Last Admin Trade Name Gilberto PRN Reason Stop Dose Admin Sodium Chloride 1,000 mls @ 999 mls/hr 04/05/23 14:19 04/05/23 16:45 Ns IV 04/05/23 15:19 Infused .Q1H1M STA Infusion Ampicillin Sodium/Sulbactam 100 mls @ 200 mls/hr 04/05/23 14:19 04/05/23 16:45 Sodium 3 gm/ Sodium Chloride IV 04/05/23 14:48 Infused ONCE STA Infusion Ketorolac Tromethamine 15 mg 04/05/23 14:19 04/05/23 14:37 Ketorolac Tromethamine 15 Mg/Ml Vial IVPUSH 04/05/23 14:20 15 mg ONCE STA Administration Ketorolac Tromethamine 15 mg 04/05/23 17:40 04/05/23 17:44 Ketorolac Tromethamine 15 Mg/Ml Vial IVPUSH 04/05/23 17:41 15 mg ONCE STA Administration Ondansetron HCl 4 mg 04/05/23 14:19 04/05/23 14:37 Ondansetron Hcl 4 Mg/2 Ml Vial IVPUSH 04/05/23 14:20 4 mg ONCE ONE Administration <Lenard King MD - Last Filed: 04/05/23 20:15> Discharge Plan Discharge Clinical Impression: Diverticulitis of sigmoid colon, Left ovarian enlargement <KENDRA Howard - Last Filed: 04/05/23 11:48> Patient Disposition: Home, Self-Care <KENDRA Howard - Last Filed: 04/05/23 11:48> Instructions: Diverticulitis (ED) <KENDRA Howard - Last Filed: 04/05/23 11:48> Additional Instructions: Your blood work did reveal an elevated white blood count of 22,300-this is most likely caused by diverticulitis The CT scan of your abdomen pelvis with IV contrast is consistent with sigmoid diverticulitis. The CT scan did reveal inflammation enlargement the left ovary which is most likely caused by the diverticulitis. Your duplex ultrasound of your ovaries revealed good blood flow (arterial and venous) to both ovaries which is reassuring in you do not have a twisted/torsed ovary is the cause of the inflammation. The ovary does appear to be enlarged according the radiologist therefore you should follow-up with your gynecology for repeat ultrasound as an outpatient when you are feeling better. Take Augmentin (amoxicillin/clavulanic acid) 875/125 mg, 1 pill every 12 hours for 7 days Take ibuprofen 200 mg pills, 2 pills every 6 hours as needed for pain. Take Tylenol (acetaminophen) 2 pills every 6 hours as needed for pain. For pain not relieved by ibuprofen or Tylenol take morphine 15 mg pills, 1 pill every 4 hours as needed for pain. This medication will make you sleepy, do not drive or work while taking this medication. Morphine is a narcotic medication and can be addicting. If you are concerned about addiction you can ask the pharmacist for less pills or do not get this prescription filled. Follow-up with your doctor in 2 days. Please return to the emergency department if your symptoms get worse or if you develop any symptoms that are concerning to you. <KENDRA Howard - Last Filed: 04/05/23 11:48> Prescriptions: New amoxicillin-pot clavulanate 875-125 mg tablet 1 tab PO Q12H 7 Days Qty: 14 0RF morphine 15 mg tablet 15 mg PO Q4-6H PRN (Reason: pain) Qty: 10 0RF Rx Instructions: The patient may ask for partial fill; Partial Fill upon patient request. No Action albuterol sulfate 90 mcg/actuation HFA aerosol inhaler 2 puff inhalation Q4-6H PRN (Reason: Shortness Of Breath Or Wheezing) Elderberry rosuvastatin 10 mg tablet 10 mg PO BEDTIME prednisone 20 mg tablet 40 mg PO DAILY 5 Days Qty: 10 0RF amoxicillin-pot clavulanate 875-125 mg tablet 1 tab PO BID 10 Days Qty: 20 0RF <KENDRA Howard - Last Filed: 04/05/23 11:48>
[2023-04-05 13:10] LABS: MANUAL DIFF FLAG NO
[2023-04-05 13:14] LABS: Basophils Absolute Auto 0.1 X10*3/uL (0.0-0.2); Basophils Percent Auto 0.2 % (0-2); Hematocrit 42.7 % (37.0-47.0); Hemoglobin 14.3 g/dl (12.0-16.0); Imm Gran Abs Auto 0.22 X10*3/uL (0.00-0.03); Lymphocytes Absolute Auto 2.5 X10*3/uL (1.2-4.9); Mean Corpuscular HGB Conc 33.5 g/dl (31.0-35.0); Mean Corpuscular Hemoglobin 28.7 pg (27.0-33.0); Mean Corpuscular Volume 85.7 fL (80.0-98.0); Mean Platelet Volume 8.8 fL (9.4-12.3); Monocytes Absolute Auto 1.4 X10*3/uL (0.1-1.2); Monocytes Percent Auto 6.1 % (2-11); Neutrophils Absolute Auto 18.2 x10*3/uL (2.0-8.3); Neutrophils Percent Auto 81.7 % (45-73); Platelet Count 300 X10*3/uL (160-400); Red Blood Count 4.98 X10*6/uL (4.20-5.50); Red Cell Distribution Width 12.6 % (11.0-16.0); White Blood Count 22.3 X10*3/uL (4.8-10.8)
[2023-04-05 13:15] LABS: Appearance Urine Clear; Color Urine Dark Yellow; Glucose Urine UA Negative (Negative); Leukocyte Esterase Urine Trace (Negative); Nitrite Urine Negative (Negative); PH 5.5 (5.0-9.0); Specific Gravity - Urine 1.025 (1.005-1.025); UMIC TRIGGER UACC YES; Urine Blood Negative (Negative); Urine Ketones 15 mg/dL (Negative); Urine Protein Trace mg/dL (Neg-Trace)
[2023-04-05 13:18] LABS: Bacteria Urine None Seen (None Seen); Hyaline Casts Urine 0-2 /LPF (0-2); RBC Urine 0-2 /HPF (0-2); Squamous Epithelial Cell Urine 0-2 /HPF (0-2); WBC Urine 0-5 /HPF (0-5)
[2023-04-05 13:29] LABS: COVID-19 Test Negative (Negative); IDNOW Serial# 08D9AD1C
[2023-04-05 13:42] LABS: Alanine Aminotransferase 15 U/L (0-31); Albumin Level 4.5 g/dL (3.5-5.0); Alkaline Phosphatase 86 U/L (39-117); Anion Gap 14 (12-20); Aspartate Amino Transferase 16 U/L (5-31); Bilirubin Total 0.7 mg/dL (0.0-1.0); Blood Urea Nitrogen 18 mg/dL (9-16); Calcium 9.8 mg/dL (8.4-10.2); Carbon Dioxide 27 mmol/L (22-29); Chloride 104 mmol/L (96-108); Creatinine Clr Calc Pharmacy 75.3; Estimated Glomerular Filt Rate > 60; Glucose Random 118 mg/dL (60-115); HCG Quantitative 3 mIU/mL; Lipase 32 U/L (8-78); Magnesium 2.3 mg/dL (1.6-2.6); Sodium 141 mmol/L (135-145); Total Protein 7.8 g/dL (6.5-8.0)
[2023-04-05] MEDS: 0.9 % Sodium Chloride 1,000 ML 999 ML IV (14:37)
[2023-04-05] MEDS: ondansetron HCL 4 MG/2 ML VIAL IVPUSH (14:37)
[2023-04-05] MEDS: Ketorolac Tromethamine 15 MG/ML VIAL IVPUSH ×2 (14:37→17:44)
[2023-04-05] MEDS: Ampicillin Sodium/Sulbactam Na 3 GM in 0.9 % Sodium Chloride 100 ML IV (14:37)
[2023-04-05 14:42] LABS: Lactic Acid 1.5 mmol/L (0.5-2.0)
[2023-04-05 16:00] VITALS: BP 120/63; PULSE 86; RESP 16; TEMP 37.1; O2SAT 97
--- NOTE | 2023-04-05 17:45 | PC.NURSE ---
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
[2023-04-05 19:13] VITALS: BP 94/57; PULSE 84; RESP 16; TEMP 36.9; O2SAT 93
[2023-04-05 19:28] VITALS: BP 107/45; PULSE 84; RESP 18; O2SAT 94
== END 2023-04-05 20:40 | disposition home or self-care (01) ==
PROVIDERS: Physician Assistant; Emergency Provider Emergency Medicine Emergency Medical Services; PCP Nurse Practitioner Family
DX: K57.32 Diverticulitis of large intestine without perforation or abscess without bleeding (principal); R10.2 Pelvic and perineal pain; Z79.899 Other long term (current) drug therapy; Z20.822 Contact with and (suspected) exposure to COVID-19; Z20.828 Contact with and (suspected) exposure to other viral communicable diseases
CPT/HCPCS: 36415; 74176; 76830; 76856; 80053; 81001; 83605; 83690; 83735; 84702; 85025; 87040; 87635; 93975; 96365; 96366; 96375; 96376; 99284; J0295; J1885; J2405

== ENCOUNTER → 2023-04-12 12:25 | Outpatient (BNVA) | payer OTHER, SELFPAY | PROVIDERS: PCP Nurse Practitioner Family; Visit Provider Obstetrics & Gynecology ==

== ENCOUNTER 2023-05-18 06:14 | Outpatient (REF) | payer OTHER, SELFPAY ==
[2023-05-18 11:22] LABS: MANUAL DIFF FLAG NO
[2023-05-18 11:26] LABS: Basophils Percent Auto 0.7 % (0-2); Eosinophils Absolute Auto 0.2 X10*3/uL (0.0-0.4); Eosinophils Percent Auto 3.2 % (0-4); Hematocrit 40.8 % (37.0-47.0); Hemoglobin 13.4 g/dl (12.0-16.0); Imm Gran Abs Auto 0.03 X10*3/uL (0.00-0.03); Imm Gran Pct Auto 0.5 % (0.0-0.4); Lymphocytes Absolute Auto 2.4 X10*3/uL (1.2-4.9); Lymphocytes Percent Auto 42.8 % (20-40); Mean Corpuscular HGB Conc 32.8 g/dl (31.0-35.0); Mean Corpuscular Hemoglobin 29.1 pg (27.0-33.0); Mean Corpuscular Volume 88.7 fL (80.0-98.0); Mean Platelet Volume 9.5 fL (9.4-12.3); Monocytes Absolute Auto 0.5 X10*3/uL (0.1-1.2); Monocytes Percent Auto 9.5 % (2-11); Neutrophils Absolute Auto 2.4 x10*3/uL (2.0-8.3); Neutrophils Percent Auto 43.3 % (45-73); Platelet Count 264 X10*3/uL (160-400); Red Cell Distribution Width 13.2 % (11.0-16.0); White Blood Count 5.6 X10*3/uL (4.8-10.8)
[2023-05-18 12:04] LABS: Estimated Average Glucose 103 mg/dL; Hemoglobin A1c % 5.2 %
[2023-05-18 12:34] LABS: Alanine Aminotransferase 27 U/L (0-31); Albumin Level 4.2 g/dL (3.5-5.0); Alkaline Phosphatase 79 U/L (39-117); Anion Gap 14 (12-20); Aspartate Amino Transferase 26 U/L (5-31); Bilirubin Total 0.5 mg/dL (0.0-1.0); Blood Urea Nitrogen 17 mg/dL (9-16); Calcium 9.2 mg/dL (8.4-10.2); Carbon Dioxide 25 mmol/L (22-29); Chloride 106 mmol/L (96-108); Cholesterol 198 mg/dL; Estimated Glomerular Filt Rate > 60; Glucose Random 108 mg/dL (60-115); HDL Cholesterol 49 mg/dL; LDL Cholesterol Calculated 132 mg/dl; Sodium 141 mmol/L (135-145); Total Protein 7.7 g/dL (6.5-8.0); Triglycerides 89 mg/dL
== END 2023-05-18 06:15 | disposition home or self-care (01) ==
LOC: HO.HMGCLDS 06:14
PROVIDERS: PCP Nurse Practitioner Family; Visit Provider Nurse Practitioner Family
DX: Z00.00 Encounter for general adult medical examination without abnormal findings (principal); E78.00 Pure hypercholesterolemia, unspecified; E66.3 Overweight; R73.02 Impaired glucose tolerance (oral)
CPT/HCPCS: 36415; 80053; 80061; 83036; 85025

== ENCOUNTER 2023-10-02 08:34 | Outpatient (AMB) | payer OTHER, SELFPAY ==
[2023-10-02 08:45] VITALS: BP 136/88; PULSE 86; TEMP 36.8; O2SAT 96; BMI 30.4
--- NOTE | 2023-10-02 08:45 | AM.OFFWIN_ITS ---
Intake Vital Signs 10/02/23 08:45 Height 5 ft 3 in Weight 171 lb 8 oz BMI 30.4 BP 136/88 Blood Pressure Location Rt brachial Position Sitting Pulse 86 Pulse Source Pulse Oximeter Temp 98.2 F Temp Source Oral Pulse Oximetry (%) 96 Oxygen Delivery Method Room Air Intake Visit Reasons: EST/sinus issues(lobby masked) Intake Note: pt says she has been dealing with sinus pressure and pain in her face around her eyes and her teeth she says she has the pain for a few months pt says she has mucus drainage the AM Patient Tobacco Use Status: Never used Tobacco Allergies dust Allergy (Unknown, Uncoded 10/02/23 09:24) Runny Nose grass Allergy (Unknown, Uncoded 10/02/23 09:24) Runny Nose trees Allergy (Unknown, Uncoded 10/02/23 09:24) Runny Nose Medication List - Last Reconciled 10/02/23 by Stephen Lovell MD albuterol sulfate 90 mcg/actuation 2 puffs inhalation Q4-6H PRN [Elderberry ] rosuvastatin 10 mg PO BEDTIME HPI EST/sinus issues(lobby masked) HPI Details Patient presents for a sick visit. Reporting symptoms of sinus congestion, sore throat and difficulty swallowing. Low-grade fever. No family member is sick. No recent travel. Patient reports symptoms of malaise and fatigue. [facility] Medical History Arthritis Asthma Elevated cholesterol Low back pain Surgical History H/O eye surgery History of total right knee replacement Hx of colonoscopy Family History Father Colon cancer Social History Alcohol intake: current Alcohol intake frequency: a few times a month Patient Tobacco Use Status: Never used Tobacco Physical Exam Vital Signs: Last Vital Signs Temp 98.2 F 10/02/23 08:45 Pulse 86 10/02/23 08:45 BP 136/88 10/02/23 08:45 Pulse Ox 96 10/02/23 08:45 Oxygen Delivery Method Room Air 10/02/23 08:45 BMI result Body Mass Index 30.4 Const General: cooperative and healthy appearing Nutritional Appearance: well nourished Orientation/consciousness: patient oriented x3 Limitations: no limitations HEENT Head: Yes normal to inspection Eyes General: appearance normal, both eyes and all related structures Neck Neck: Yes normal visual inspection Chest Chest palpation & inspection: normal palpation of entire chest wall Resp Effort & Inspection: normal respiratory effort Neuro General: patient oriented x3 Assessment & Plan Assessment & Plan (1) Maxillary sinusitis: Code(s): J32.0 - Chronic maxillary sinusitis Plan: Antibiotics ordered. Increase fluid intake. Tylenol for aches and pains. If symptoms worsen, follow-up here for a recheck. Coding Level of Care Code Est Pt Level 3 (73932) Diagnoses Maxillary sinusitis J32.0
== END 2023-10-02 09:57 | disposition home or self-care (01) ==
PROVIDERS: PCP Nurse Practitioner Family; Visit Provider Internal Medicine
DX: J32.0 Chronic maxillary sinusitis (principal)
CPT/HCPCS: 99213

== ENCOUNTER 2024-03-31 08:08 | Outpatient (AMB) | payer OTHER, SELFPAY ==
[2024-03-31 08:12] VITALS: BP 132/74; PULSE 80; TEMP 36.6; O2SAT 98
--- NOTE | 2024-03-31 08:12 | AM.OFFWIN_ITS ---
Intake Vital Signs 03/31/24 08:12 Height 5 ft 3 in BMI Reason not done Patient refused/unable BP 132/74 Blood Pressure Location Rt brachial Position Sitting Pulse 80 Pulse Source Pulse Oximeter Temp 97.8 F Temp Source Oral Pulse Oximetry (%) 98 Intake Visit Reasons: EP back of head/neck/Shoulder pain Intake Note: pt is here for back of head, neck, shoulder pain ongoing for 1 week Patient Tobacco Use Status: Never used Tobacco Allergies dust Allergy (Unknown, Uncoded 03/31/24 08:54) Runny Nose grass Allergy (Unknown, Uncoded 03/31/24 08:54) Runny Nose trees Allergy (Unknown, Uncoded 03/31/24 08:54) Runny Nose Medication List - Last Reconciled 03/31/24 by Stephen Lovell MD albuterol sulfate 90 mcg/actuation 2 puffs inhalation Q4-6H PRN [Elderberry ] rosuvastatin 10 mg PO BEDTIME Do you need a note to return to daycare/school/sports/work: No HPI EP back of head/neck/Shoulder pain HPI Details 64-year-old female presents to the [facility] for a sick visit. Patient is complaining of neck pain for the past 1 week. Does not recall any fall or injury prior to the onset of symptoms. Pain is worse on turning the he ad to the left side. Pain is worse on sitting down and relieved on lying down on the right side. Has been using heat and cold packs with minimal relief. Patient has tried topical lidocaine patch with minimal relief. [facility] Medical History Arthritis Asthma Elevated cholesterol Low back pain Surgical History H/O eye surgery History of total right knee replacement Hx of colonoscopy Family History Father Colon cancer Social History Alcohol intake: current Alcohol intake frequency: a few times a month Patient Tobacco Use Status: Never used Tobacco Physical Exam Vital Signs: Last Vital Signs Temp 97.8 F 03/31/24 08:12 Pulse 80 03/31/24 08:12 BP 132/74 03/31/24 08:12 Pulse Ox 98 03/31/24 08:12 Const General: cooperative and healthy appearing Nutritional Appearance: well nourished Orientation/consciousness: patient oriented x3 Limitations: no limitations HEENT Head: Yes normal to inspection Eyes General: appearance normal, both eyes and all related structures Neck Other: Left trapezius is tender to palpate. Lateral motion of the head elicits marked discomfort. Neck: Yes normal visual inspection Chest Chest palpation & inspection: normal palpation of entire chest wall Resp Effort & Inspection: normal respiratory effort Neuro General: patient oriented x3 Assessment & Plan Assessment & Plan (1) Sprain of cervical neck: Code(s): S13.9XXA - Sprain of joints and ligaments of unspecified parts of neck, initial encounter Plan: Meloxicam and cyclobenzaprine called in. Patient was advised to stretch the concerned area Coding Level of Care Code Est Pt Level 3 (00605) Diagnoses Sprain of cervical neck S13.9XXA
== END 2024-03-31 09:44 | disposition home or self-care (01) ==
PROVIDERS: Visit Provider Internal Medicine
DX: S13.9XXA Sprain of joints and ligaments of unspecified parts of neck, initial encounter (principal)
CPT/HCPCS: 99213

== ENCOUNTER 2024-05-05 09:47 | Outpatient (AMB) | payer OTHER, SELFPAY ==
--- OUTSIDE RECORDS SUMMARY | 2024-05-05 09:49 | XMS_ITS | Patient Health Record ---
Author Organization [facility] Address [address] [place] [address] Care Team Providers Care Route Driver Coin Machines Name Role Phone Pippa SERRATO, Yamini Primary Care Provider Hebert Munoz Jr Unavailable REASON FOR REFERRAL No Information MEDICATIONS Medication SIG (Take, Route, Frequency, Duration) Notes Start Date End Date Status ProAir HFA 108 (90 Base) MCG/ACT 2 puffs as needed Inhalation every 4 hrs Active Lipitor Active Advil Active Elderberry Active MiraLax (colon prep) 8.3 ounce (238) grams mixed with Gatorade or Crystal Light orally begin at 5:00 p.m. the day before the procedure for 1 day 05/02/2021 Active IMMUNIZATIONS Vaccine Route Administration Date Status Comme nts Influenza Unknown 09/08/2020 Administered SOCIAL HISTORY Sex Assigned At : Social History Observation Description Sex Assigned At Unknown PROBLEMS Problem Type ICD Code Onset Dates Problem Status W/U Status Risk SNOMED Code Notes Problem Colon cancer screening (Z12.11) Active confirmed 847398616 Problem Gas (R14.3) Active confirmed 687645285 Problem Encounter for other preprocedural examination (Z01.818) Active confirmed 497107047 Problem Family history of colon cancer (Z80.0) Active confirmed 115796049 Problem History of colon polyps (Z86.010) Active confirmed History of polyp of colon (628506883) PLAN OF TREATMENT Future Test Test Name Order Date COLONOSCOPY 12/29/2015 COLONOSCOPY 05/02/2021 Insurance Providers Payer Name Payer Address Payer Phone Subscriber Number Group Number Insured Name Patient Relationship to Insured Coverage Start Date Coverage End Date [facility] [place] [address] [place] [phone] [id number] ROSETTE OFNG Self - patient is the insured MEDICAL (GENERAL) HISTORY Medical History History ICD Code colonoscopy/, personal history of tubular adenomas and family history colon cancer, five-year followup elevated cholesterol depression asthma Surgical History Surgery Date(Month/Year) eye surgery knee surgery-right
[2024-05-05 10:28] VITALS: BP 120/68; PULSE 85; TEMP 36.5; O2SAT 95; BMI 30.2
--- NOTE | 2024-05-05 10:28 | MHC.OFFWIV ---
Intake Vital Signs 05/05/24 10:28 Height 5 ft 3 in Weight 170 lb 9 oz BMI 30.2 BP 120/68 Blood Pressure Location Lt brachial Position Sitting Pulse 85 Pulse Source Pulse Oximeter Temp 97.7 F Temp Source Temporal Artery Scan Pulse Oximetry (%) 95 Oxygen Delivery Method Room Air Intake Visit Reasons: EP LT shoulder Intake Note: pt is here today for lft shoulder started 1 month ago Patient Tobacco Use Status: Never used Tobacco Allergies dust Allergy (Unknown, Uncoded 05/05/24 10:44) Runny Nose grass Allergy (Unknown, Uncoded 05/05/24 10:44) Runny Nose trees Allergy (Unknown, Uncoded 05/05/24 10:44) Runny Nose Do you need a note to return to daycare/school/sports/work: No HPI HPI Comments History of Present Illness Details Patient is a 64-year-old female complaining of left shoulder pain x1 month. She states she came in here about a month ago we gave her some medications to help with the pain but they did not really work. So then she went to a chiropractor that helped with the neck stiffness but she still has residual numbness and tingling that starts in her left neck and radiates down to her shoulder. It is worse with movement. She denies any injury. She also states she has been taking ibuprofen and Tylenol, sometimes she just takes the ibuprofen, she states this helps her sleep at night. She denies any fevers. She does go to [facility] for her orthopedic care, she has knee issues. She does state she has a history of neck issues and has had an MRI in the past but is unsure of what her diagnosis is. [facility] Medical History Arthritis Asthma Elevated cholesterol Low back pain Surgical History H/O eye surgery History of total right knee replacement Hx of colonoscopy Family History Father Colon cancer Social History Alcohol intake: current Alcohol intake frequency: a few times a month Patient Tobacco Use Status: Never used Tobacco Review of Systems Const All systems reviewed & are unremarkable except as noted in HPI and below Physical Exam Vital Signs: Last Vital Signs Temp 97.7 F 05/05/24 10:28 Pulse 85 05/05/24 10:28 BP 120/68 05/05/24 10:28 Pulse Ox 95 05/05/24 10:28 Oxygen Delivery Method Room Air 05/05/24 10:28 BMI result Body Mass Index 30.2 Const General: cooperative, healthy appearing, comfortable, no acute distress and well developed Orientation/consciousness: patient oriented x3 Limitations: no limitations HEENT Head: Yes normal to inspection Eyes General: appearance normal, both eyes and all related structures Neck Neck: Yes normal visual inspection, Yes full ROM, Yes no meningeal signs, Yes trachea midline and No tender Resp Effort & Inspection: normal respiratory effort and able to speak in complete sentences Skin General skin exam: no rashes or lesions noted Neuro General: patient oriented x3 and no meningeal signs Extrem General: Yes normal to inspection Results Reviewed Results Reviewed: XR/XR cervical spine 3V IMPRESSION: Advanced multilevel cervical spondylosis. Assessment & Plan Assessment & Plan (1) Cervicalgia: Code(s): M54.2 - Cervicalgia Plan: We will get cervical spine x-ray, recommended continuing icing as well as Advil. Recommended following up with [facility] if the pain persists. Plan see above Orders: Orders XR cervical spine 3V Today M54.2 - Cervicalgia Coding Level of Care Code New Pt Level 3 (94611) Diagnoses Cervicalgia M54.2
== END 2024-05-05 11:16 | disposition home or self-care (01) ==
PROVIDERS: Visit Provider Physician Assistant
DX: M54.2 Cervicalgia (principal)
CPT/HCPCS: 99213

== ENCOUNTER 2024-05-05 10:55 | Outpatient (REF) | payer OTHER, SELFPAY ==
--- NOTE | ~2024-05-05 | XR_ITS ---
EXAMINATION: XR CERVICAL SPINE CLINICAL INFORMATION: Neck pain. COMPARISON: MRI cervical spine of 09/06/2017. TECHNIQUE: 3 views of the cervical spine were obtained. FINDINGS: The bones are diffusely demineralized. Degenerative changes between the anterior arch of C1 and the odontoid. Mild retrolisthesis of C4 on C5. Advanced multilevel cervical spondylosis with multilevel loss of disc space height at Q0-X6-J5-C6-C7 levels. Minimal anterolisthesis of C2 on C3. XR/XR cervical spine 3V IMPRESSION: Advanced multilevel cervical spondylosis. This study was presented today May 05, 2024 for interpretation. Stat results provided at this time as requested by referring provider.
== END 2024-05-05 10:56 | disposition home or self-care (01) ==
LOC: HO.HMGCX 10:55
PROVIDERS: Visit Provider Physician Assistant
DX: M54.2 Cervicalgia (principal)
CPT/HCPCS: 72040

== ENCOUNTER 2024-09-02 06:11 | Outpatient (REF) | payer OTHER, SELFPAY ==
[2024-09-02 10:03] LABS: MANUAL DIFF FLAG NO
[2024-09-02 10:11] LABS: Basophils Absolute Auto 0.1 X10*3/uL (0.0-0.2); Basophils Percent Auto 0.8 % (0-2); Eosinophils Absolute Auto 0.4 X10*3/uL (0.0-0.4); Eosinophils Percent Auto 5.7 % (0-4); Hematocrit 40.2 % (37.0-47.0); Hemoglobin 13.7 g/dl (12.0-16.0); Imm Gran Abs Auto 0.04 X10*3/uL (0.00-0.03); Imm Gran Pct Auto 0.5 % (0.0-0.4); Lymphocytes Absolute Auto 2.6 X10*3/uL (1.2-4.9); Lymphocytes Percent Auto 34.7 % (20-40); Mean Corpuscular HGB Conc 34.1 g/dl (31.0-35.0); Mean Corpuscular Hemoglobin 29.9 pg (27.0-33.0); Mean Corpuscular Volume 87.8 fL (80.0-98.0); Mean Platelet Volume 9.4 fL (9.4-12.3); Monocytes Absolute Auto 0.6 X10*3/uL (0.1-1.2); Monocytes Percent Auto 7.9 % (2-11); Neutrophils Absolute Auto 3.7 x10*3/uL (2.0-8.3); Neutrophils Percent Auto 50.4 % (45-73); Platelet Count 264 X10*3/uL (160-400); Red Blood Count 4.58 X10*6/uL (4.20-5.50); Red Cell Distribution Width 12.3 % (11.0-16.0); White Blood Count 7.4 X10*3/uL (4.8-10.8)
[2024-09-02 10:42] LABS: Alanine Aminotransferase 17 U/L (0-31); Albumin Level 4.2 g/dL (3.5-5.0); Alkaline Phosphatase 84 U/L (39-117); Anion Gap 12 (12-20); Aspartate Amino Transferase 20 U/L (5-31); Bilirubin Total 0.4 mg/dL (0.0-1.0); Blood Urea Nitrogen 17 mg/dL (9-16); Calcium 9.2 mg/dL (8.4-10.2); Carbon Dioxide 26 mmol/L (22-29); Chloride 108 mmol/L (96-108); Cholesterol 204 mg/dL (<200); Estimated Glomerular Filt Rate > 60; Glucose Random 111 mg/dL (60-115); HDL Cholesterol 56 mg/dL (>40); LDL Cholesterol Calculated 125 mg/dL (<100); Potassium 3.9 mmol/L (3.3-5.1); Sodium 142 mmol/L (135-145); Total Protein 7.5 g/dL (6.5-8.0); Triglycerides 116 mg/dL (<150)
[2024-09-02 10:45] LABS: Thyroid Stimulating Hormone 2.75 uIU/mL (0.32-4.0)
[2024-09-02 10:53] LABS: Estimated Average Glucose 111 mg/dL; Hemoglobin A1C 124.2568 umol/L; Hemoglobin A1c % 5.5 % (<6.0)
== END 2024-09-02 06:12 | disposition home or self-care (01) ==
LOC: HO.HMGCLDS 06:11
PROVIDERS: PCP Nurse Practitioner Primary Care; Visit Provider Nurse Practitioner Primary Care
DX: Z00.00 Encounter for general adult medical examination without abnormal findings (principal); Z13.1 Encounter for screening for diabetes mellitus; Z13.89 Encounter for screening for other disorder
CPT/HCPCS: 36415; 80053; 80061; 83036; 84443; 85025

== ENCOUNTER 2024-09-03 14:27 | Outpatient (REF) | payer OTHER, SELFPAY ==
--- NOTE | ~2024-09-03 | MM_ITS ---
EXAMINATION: BONE DENSITOMETRY CLINICAL INDICATION: Right breast density. COMPARISON: Baseline BD dated 10/31/2016. TECHNIQUE: Using a WAKU WAKU ? DXA System (software version: 13.1) manufactured by [employer], dual-energy x-ray absorptiometry was performed of the lumbar spine and left hip. The images are of good technical quality. Summary results are attached. FINDINGS: LEFT FEMUR, NECK: Current: BMD 0.790 g/cm2, Z-score -0.4, T-score -1.8, osteopenia. Baseline: BMD 0.828 g/cm2. LEFT FEMUR, TOTAL: Current: BMD 0.854 g/cm2, Z-score -0.1, T-score -1.2, osteopenia, 2.1% decrease from baseline (<5% change is not significant). Baseline: BMD 0.872 g/cm2. AP SPINE L1-L4: Current: BMD 1.463 g/cm2, Z-score 3.7, T-score 2.4, normal, 27.2% increase from baseline (<5% change is not significant). Baseline: BMD 1.150 g/cm2. IDENTIFIED RISK FACTORS: Height loss, menopause. HISTORY OF FRACTURE: None listed. MEDICATIONS: Vitamin D. MM/XR DEXA axial skeleton IMPRESSION: 1. DIAGNOSIS: Osteopenia based on the lowest T-score value of -1.8 in the femoral neck applying World Health Organization criteria. 2. 10-YEAR FRACTURE RISK PREDICTION, FRAX: Major osteoporotic fracture (clinical spine, forearm, hip or shoulder) 10.1%. Hip fracture 1.4%. 3. Treatment Recommendations: NOF guidelines recommend consideration for treatment in postmenopausal women and men age 50 and older presenting with the following: -A hip or vertebral (clinical or morphometric) fracture. -T-score less than or equal to -2.5 at the femoral neck or spine after appropriate evaluation to exclude secondary causes. -Low bone mass at the hip or spine and a 10-year fracture probability by FRAX of greater than or equal to 3% for hip fracture or greater than or equal to 20% for major osteoporotic fracture based on the [place] adapted WHO algorithm. 4. Other Recommendations: All treatment decisions require clinical judgment and consideration of individual patient factors, including patient preferences, comorbidities, previous drug use, risk factors not captured in the FRAX model (e.g. frailty, falls, vitamin D deficiency, increased bone turnover, interval significant decline in bone density) and possible under or overestimation of fracture risk by FRAX. Additional medical evaluation for secondary cause of low bone mineral density may be appropriate. FUTURE SCAN RECOMMENDATION: People with diagnosed cases of osteoporosis or at high risk for fracture should have regular bone mineral density tests. For patients eligible for Medicare, routine testing is allowed once every 2 years. The testing frequency can be increased to one year for patients who have rapidly progressing disease, those who are receiving or discontinuing medical therapy to restore bone mass, or have additional risk factors. Electronically signed by: Hari Willett MD 09/11/2024 09:57 AM EDT RP
== END 2024-09-03 14:28 | disposition home or self-care (01) ==
LOC: HO.MAMMO 14:27
PROVIDERS: PCP Nurse Practitioner Primary Care; Visit Provider Nurse Practitioner Primary Care
DX: Z13.820 Encounter for screening for osteoporosis (principal); Z78.0 Asymptomatic menopausal state
CPT/HCPCS: 77080

== ENCOUNTER 2025-01-20 06:03 | Outpatient (REF) | payer OTHER, SELFPAY ==
[2025-01-20 10:30] LABS: Alanine Aminotransferase 24 U/L (0-31); Albumin Level 4.2 g/dL (3.5-5.0); Alkaline Phosphatase 81 U/L (39-117); Anion Gap 11 (12-20); Aspartate Amino Transferase 28 U/L (5-31); Bilirubin Total 0.4 mg/dL (0.0-1.0); Blood Urea Nitrogen 18 mg/dL (9-16); Calcium 9.8 mg/dL (8.4-10.2); Carbon Dioxide 25 mmol/L (22-29); Chloride 108 mmol/L (96-108); Cholesterol 194 mg/dL (<200); Estimated Glomerular Filt Rate > 60; Glucose Fasting 106 mg/dL (60-99); Glucose Random 106 mg/dL (60-115); HDL Cholesterol 54 mg/dL (>40); LDL Cholesterol Calculated 120 mg/dL (<100); Potassium 3.9 mmol/L (3.3-5.1); Sodium 140 mmol/L (135-145); Triglycerides 103 mg/dL (<150)
[2025-01-20 10:55] LABS: TSH reflex Free T4 2.66 uIU/mL (0.32-4.0)
== END 2025-01-20 06:04 | disposition home or self-care (01) ==
LOC: HO.HMGCLDS 06:03
PROVIDERS: Visit Provider Physician Assistant Surgical
DX: Z00.00 Encounter for general adult medical examination without abnormal findings (principal)
CPT/HCPCS: 36415; 80053; 80061; 84443

== ENCOUNTER 2025-01-22 08:17 | Outpatient (REF) | payer OTHER, SELFPAY ==
--- OUTSIDE RECORDS SUMMARY | 2025-01-22 08:41 | XMS_ITS | Patient Health Record ---
Author Organization [facility] Address [address] [place] [address] Care Team Providers Care Business Management Manager Name Role Phone Pippa SERRATO, Yamini Primary [...] Problem Colon cancer screening (Z12.11) Active confirmed 299884954 Problem Encounter for other preprocedural examination (Z01.818) Active confirmed 626252612 Problem History of colon polyps (Z86.010) Active confirmed History of polyp of colon (965668617) Problem Gas (R14.3) Active confirmed 421667183 Problem Family history of colon cancer (Z80.0) Active confirmed 039095386 PLAN OF TREATMENT Future Test Test Name Order Date COLONOSCOPY 12/29/2015 COLONOSCOPY 05/02/2021 Insurance Providers Payer Name Payer Address Payer Phone Subscriber Number Group Number Insured Name Patient Relationship to Insured Coverage Start Date Coverage End Date [facility] [address] [place] [phone] [id number] ROSETTE FONG Self - patient is the insured MEDICAL (GENERAL) HISTORY Medical History History ICD Code colonoscopy/, personal history of tubular adenomas and family history colon cancer, five-year followup elevated cholesterol depression asthma Surgical History Surgery Date(Month/Year) eye surgery knee surgery-right
== END 2025-01-22 08:18 | disposition home or self-care (01) ==
LOC: HO.MAMMO 08:17
PROVIDERS: PCP Physician Assistant Surgical; Visit Provider Physician Assistant Surgical
DX: Z12.31 Encounter for screening mammogram for malignant neoplasm of breast (principal)
CPT/HCPCS: 77063; 77067

== ENCOUNTER → 2025-01-22 08:30 | Outpatient (BNV) | payer OTHER, SELFPAY | PROVIDERS: PCP Physician Assistant Surgical; Visit Provider Internal Medicine | DX: Z12.31 Encounter for screening mammogram for malignant neoplasm of breast (principal) | CPT/HCPCS: 77063; 77067 ==

== ENCOUNTER 2025-02-25 12:21 | Outpatient (REF) | payer OTHER, SELFPAY ==
--- NOTE | ~2025-02-25 | XR_ITS ---
EXAMINATION: XR CHEST 2 VIEWS HISTORY: PAIN COMPARISON: There are no prior studies for comparison. FINDINGS: PA and lateral views of the chest are submitted. There is linear subsegmental atelectasis versus scarring at both lung bases. There is no pleural effusion, pneumothorax, or pulmonary vascular congestion. The heart is normal in size. There is degenerative disc disease of the spine. XR/XR chest 2V IMPRESSION: Bibasilar subsegmental atelectasis versus scarring. Electronically signed by: Savage Wei MD 02/26/2025 08:49 AM EDT
--- NOTE | ~2025-02-25 | US_ITS ---
EXAMINATION: US DIAGNOSTIC ULTRASOUND BREAST, LEFT CLINICAL INFORMATION: Palpable left breast lump felt by the patient's doctor and left breast pain. Patient had a normal bilateral screening mammogram January 22, 2025.. COMPARISON: Comparison is made with relevant prior imaging. TECHNIQUE: Ultrasound of the breast is performed with real-time armstrong scale imaging and color Doppler. FINDINGS: Targeted color Doppler ultrasound scanning in the area of the palpable lump felt by the patient's physician from 11-4 o'clock demonstrate normal fibronodular breast tissue. Targeted color Doppler ultrasound scanning from 40 8:00 in the area of the patient's pain demonstrates normal fibronodular breast tissue. There is no sonographic abnormality. Results are discussed with the patient at time of visit. US/US breast LT limited mamm only IMPRESSION: No sonographic abnormality to correlate with the patient's palpable lump and pain. Recent mammogram December 2024 was normal. If patient is having chest pain recommend clinical evaluation and further cardiac workup. These findings and recommendations were discussed with the patient. ASSESSMENT: BI-RADS 1: Negative RECOMMENDATION: 1. Patient should be managed based on the clinical impression. Decision to proceed with biopsy should be based on clinical grounds and degree of clinical concern. 2. Otherwise, routine annual screening mammography. This patient's information was entered into a reminder system with a target due date for their next mammogram. Electronically signed by: Angle Lindsay DO 02/25/2025 01:23 PM EDT
--- OUTSIDE RECORDS SUMMARY | 2025-02-25 14:51 | XMS_ITS | Patient Health Record ---
Author Organization [facility] Address [address] [place] [address] Care Team Providers Care Nip Wrapper Name Role Phone Pippa SERRATO, Yamini Primary Care Provider Hebert Munoz Jr Unavailable [phone] Reason For Referral No Information Medications Medication SIG (Take, Route, Frequency, Duration) Notes Start Date End Date Status ProAir HFA 108 (90 Base) MCG/ACT 2 puffs as needed Inhalation every 4 hrs Active Lipitor Active Advil Active Elderberry Active MiraLax (colon prep) 8.3 ounce ((238) grams mixed with Gatorade or Crystal Light orally begin at 5:00 p.m. the day before the procedure for 1 day 05/02/2021 Active Immunizations Vaccine Route Administration Date Status Comme nts Influenza Unknown 09/08/2020 Administered Problems Problem Type SNOMED Code ICD Code Onset Dates Problem Status W/U Status Risk Notes Problem 887368599 Colon cancer screening (Z12.11) Active confirmed Problem 423994278 Encounter for other preprocedural examination (Z01.818) Active confirmed Problem History of polyp of colon (701401259) History of colon polyps (Z86.010) Active confirmed Problem 312574985 Gas (R14.3) Active confirmed Problem 868303516 Family history o f colon cancer (Z80.0) Active confirmed Plan Of Treatment Future Test Test Name Order Date COLONOSCOPY 12/29/2015 COLONOSCOPY 05/02/2021 Insurance Providers Payer Name Payer Address Payer Phone Subscriber Number Group Number Insured Name Patient Relationship to Insured Coverage Start Date Coverage End Date [facility] [address] [place] [phone] [id number] ROSETTE FONG Self - patient is the insured Medical (General) History Medical History History ICD Code /, personal history of tubular adenomas and family history colon cancer, five-year followup elevated cholesterol depression asthma Surgical History Surgery Date(Month/Year) eye surgery knee surgery-right
== END 2025-02-25 12:22 | disposition home or self-care (01) ==
LOC: HO.MAMMO 12:21
PROVIDERS: PCP Physician Assistant Surgical; Visit Provider Physician Assistant Surgical
DX: R07.9 Chest pain, unspecified (principal); N64.4 Mastodynia
CPT/HCPCS: 71046; 76642

== ENCOUNTER → 2025-02-25 13:00 | Outpatient (BNV) | payer OTHER, SELFPAY | PROVIDERS: PCP Physician Assistant Surgical; Visit Provider Internal Medicine | DX: R07.9 Chest pain, unspecified (principal) | CPT/HCPCS: 71046; 76642 ==

== ENCOUNTER 2025-02-27 12:52 | Emergency (ER) | payer OTHER, SELFPAY ==
--- NOTE | ~2025-02-27 | CT_ITS ---
CLINICAL HISTORY: Left lung pain? PE CT angiography chest with contrast. With MIP MPR Postprocessing. Comparison: None Findings: No central pulmonary embolism. No aortic dissection accounting for artifacts. Mild cardiomegaly. Nonenlarged mediastinal lymphadenopathy. Mild bibasilar atelectasis and scarring. Bronchiectasis includes the posterior basal segment and medial basal segment right lower lobe. No pneumothorax or pleural effusion. Mild fat deposition of the liver imaged upper abdomen . Trace hiatal hernia. Mild rib deformities appear old/chronic. Degenerative changes noted imaged manubrium. Degenerative changes of the spine include multifocal facet arthropathy. Hemangioma suggested. IMPRESSION: 1. No central pulmonary embolism. 2. Bibasilar atelectasis and scarring. This document has been electronically signed by: Shivam Keenan MD on 02/27/2025 22:19:55
--- NOTE | 2025-02-27 12:53 | ECG_ITS ---
Test Reason : CHEST PAIN Blood Pressure : */* mmHG Vent. Rate : 103 BPM Atrial Rate : 103 BPM P-R Int : 152 ms QRS Dur : 82 ms QT Int : 356 ms P-R-T Axes : 22 -4 -11 degrees QTcB Int : 466 ms Sinus tachycardia Inferior infarct , age undetermined Cannot rule out Anterior infarct , age undetermined Abnormal ECG No previous ECGs available Referred By: Trina Mccarty Electronically Signed By: VIDYA BARROS
[2025-02-27 13:03] VITALS: BP 173/65; PULSE 103; RESP 18; TEMP 36.7; O2SAT 93; BMI 29.8
--- NOTE | 2025-02-27 13:03 | ED_ITS ---
HPI - General Adult General Chief complaint: Chest Pain Stated complaint: Chest Pain Time Seen by Provider: 02/27/25 19:41 Source: patient Mode of arrival: ambulatory Limitations: no limitations History of Present Illness ED Provider: HPI narrative: Patient with no known coronary artery disease history of hyperlipidemia comes here for left-sided chest pain radiating to the back for last 1 week off feels slight short winded no leg swelling no history of coronary artery disease today pain got worse sharp in character worse on taking deep breaths no cough no fever patient has had the troponin and EKG and D-dimer done which was negative Related Data Home Medications ?Medication ?Instructions ?Recorded ?Confirmed Elderberry 05/13/21 03/31/24 albuterol sulfate 90 mcg/actuation 2 puff inhalation Q4-6H PRN 05/13/21 03/31/24 aerosol inhaler Shortness Of Breath Or Wheezing rosuvastatin 10 mg tablet 10 mg PO BEDTIME 04/02/23 03/31/24 Previous Rx's ?Medication ?Instructions ?Recorded cyclobenzaprine 10 mg tablet 10 mg PO BEDTIME #14 tabs 03/31/24 meloxicam 15 mg tablet 15 mg PO DAILY #14 tabs 03/31/24 Allergies Allergy/AdvReac Type Severity Reaction Status Date / Time dust Allergy Unknown Runny Nose Uncoded 02/27/25 13:05 grass Allergy Unknown Runny Nose Uncoded 02/27/25 13:05 trees Allergy Unknown Runny Nose Uncoded 02/27/25 13:05 Review of Systems 2 Review of Systems: Yes all other systems are reviewed and are negative PMFSH Past Medical History Medical History Low back pain Arthritis Elevated cholesterol Asthma Surgical History Hx of colonoscopy History of total right knee replacement H/O eye surgery Family History Family History Father Colon cancer Social History Social History Alcohol intake: current Alcohol intake frequency: a few times a month Patient Tobacco Use Status: Never used Tobacco Physical Exam ED Vital Signs: Vital Signs - 24 hr 02/27/25 13:03 02/27/25 19:35 02/27/25 20:21 Temperature 98.1 F 99.0 F 98.9 F Pulse Rate 103 H 87 73 Respiratory Rate 18 18 16 Blood Pressure 173/65 H 180/76 H 151/63 H Pulse Oximetry 93 96 95 Oxygen Delivery Method Room Air Room Air Room Air 02/27/25 23:00 02/27/25 23:06 Temperature 98.9 F 98.9 F Pulse Rate 73 73 Respiratory Rate 16 16 Blood Pressure 123/50 L 123/50 L Pulse Oximetry 95 95 Oxygen Delivery Method Room Air Room Air BMI result Body Mass Index 29.8 Appearance: Alert. Oriented X3. No acute distress. Eyes: PERRLA, No Nystagmus ENT: Pharynx normal. Oral Mucosa moist Neck: Normal inspection. Neck supple. CVS: Normal heart rate and rhythm. Pulses normal. Respiratory: No respiratory distress. Equal air entry bilateral, no wheezing/rales/rhonchi no pleural rub Abdomen: Soft and nontender. Bowel sounds are present, no mass palpable, no CVA tenderness Skin: Skin warm and dry. Normal skin color. Normal skin turgor. Extremities: No lower extremity edema. No calf tenderness Neuro: Oriented X 3. No motor deficit. No sensory deficit.No cerebellar signs , cranial nerves II-XII intact Course Course Course Narrative: RME performed by Trina Mccarty PA-C. Patient is a 65 year old assigned female at presenting to the emergency department with chest pain. Patient states that on 02/23/2025 she began having central chest pain that goes into her back. Patient states that the pain has continued. Patient states that she is short of breath. Patient states that she recently had a >2 hour car ride to the [facility]. Detailed physical exam and review of systems are deferred to the room server. EKG, labs, and swabs ordered. Patient placed back in the waiting room pending room availability and results. Medications Administered Discontinued Medications Generic Name Dose Route Start Last Admin Trade Name Freq PRN Reason Stop Dose Admin Iohexol 100 ml 02/27/25 20:46 02/27/25 20:46 Iohexol 350 Mg/Ml 100 Ml Infus..Btl IV 02/27/25 20:47 65 ml ONCE ONE Administration Medical Decision Making Medical Decision Making MDM Narrative: Patient nonspecific chest pain 2 sets of cardiac enzymes negative CTA chest also negative for acute PE EGD this of acute ischemia patient is comfortable advised to follow with PCP likely musculoskeletal/pleuritic pain Differential Diagnosis Differential Diagnoses: The differential diagnosis associated with the presentation includes PE/pleuritic mass/ACS Lab Data MDM Lab Attestation statement: I reviewed the patient's lab results. 02/27/25 13:24 02/27/25 13:24 Labs: Lab Results 02/27/25 02/27/25 Range/Units 13:24 20:13 WBC 10.3 (4.8-10.8) X10*3/uL RBC 4.62 (4.20-5.50) X10*6/uL Hgb 13.5 (12.0-16.0) g/dl Hct 40.0 (37.0-47.0) % MCV 86.6 (80.0-98.0) fL MCH 29.2 (27.0-33.0) pg MCHC 33.8 (31.0-35.0) g/dl RDW 12.5 (11.0-16.0) % Plt Count 258 (160-400) X10*3/uL MPV 8.7 L (9.4-12.3) fL Immature Gran % (Auto) 0.4 (0.0-0.4) % Neut % (Auto) 58.5 (45-73) % Lymph % (Auto) 29.5 (20-40) % [place] % (Auto) 8.8 (2-11) % Eos % (Auto) 2.1 (0-4) % Baso % (Auto) 0.7 (0-2) % Lymph # (Auto) 3.0 (1.2-4.9) X10*3/uL [place] # (Auto) 0.9 (0.1-1.2) X10*3/uL Eos # (Auto) 0.2 (0.0-0.4) X10*3/uL Baso # (Auto) 0.1 (0.0-0.2) X10*3/uL Abs Immat Gran (auto) 0.04 H (0.00-0.03) X10*3/uL Absolute Neuts (auto) 6.0 (2.0-8.3) x10*3/uL Absolute Nucleated RBC 0.000 (0.0-0.012) X10*3/uL Nucleated RBC % (auto) 0.0 (0.0-0.2) /100WBC D-Dimer High Sensitivty 213 NG/ML Sodium 141 (135-145) mmol/L Potassium 3.9 (3.3-5.1) mmol/L Chloride 107 (96-108) mmol/L Carbon Dioxide 25 (22-29) mmol/L Anion Gap 13 (12-20) BUN 13 (9-16) mg/dL Creatinine 0.68 (0.5-1.4) mg/dL Estim Creat Clear Calc 81.5 Estimated GFR > 60 Random Glucose 96 (60-115) mg/dL Calcium 9.6 (8.4-10.2) mg/dL Magnesium 2.4 (1.6-2.6) mg/dL Total Bilirubin 0.4 (0.0-1.0) mg/dL AST 27 (5-31) U/L ALT 22 (0-31) U/L Alkaline Phosphatase 89 (39-117) U/L Troponin I High Sens < 2.7 < 2.7 (<3.5-17.0) ng/L Total Protein 7.8 (6.5-8.0) g/dL Albumin 4.3 (3.5-5.0) g/dL Influenza Type A (PCR) NEGATIVE (Negative) Influenza Type B (PCR) NEGATIVE (Negative) RSV RNA Qual (PCR) NEGATIVE (Negative) SARS-CoV-2 RNA (RT-PCR) NEGATIVE (Negative) Independent Interpretation I performed an independent interpretation of an: EKG Interpretation: Sinus tachycardia with heart rate of 103 beats per minute Q-waves inferior leads no acute ST-T changes no acute ischemia Discharge Plan Discharge Clinical Impression: Atypical chest pain Patient Disposition: Home, Self-Care Instructions: Chest Pain (ED) Additional Instructions: Cause of chest pain is not clear likely pleuritic/musculoskeletal There is no evidence of blood clot or cardiac damage Take ibuprofen for pain Follow up with your PCP if any concerns Prescriptions: No Action albuterol sulfate 90 mcg/actuation HFA aerosol inhaler 2 puff inhalation Q4-6H PRN (Reason: Shortness Of Breath Or Wheezing) Elderberry meloxicam 15 mg tablet 15 mg PO DAILY Qty: 14 0RF cyclobenzaprine 10 mg tablet 10 mg PO BEDTIME Qty: 14 0RF rosuvastatin 10 mg tablet 10 mg PO BEDTIME Interventions: ED Discharge Assessment Last Done: 02/27/25 23:06 Discharge Date/Time: 02/27/25 23:07 Print Language: Burundian
[2025-02-27 13:32] LABS: MANUAL DIFF FLAG NO
[2025-02-27 13:35] LABS: Basophils Absolute Auto 0.1 X10*3/uL (0.0-0.2); Basophils Percent Auto 0.7 % (0-2); Eosinophils Absolute Auto 0.2 X10*3/uL (0.0-0.4); Eosinophils Percent Auto 2.1 % (0-4); Hemoglobin 13.5 g/dl (12.0-16.0); Imm Gran Abs Auto 0.04 X10*3/uL (0.00-0.03); Imm Gran Pct Auto 0.4 % (0.0-0.4); Lymphocytes Percent Auto 29.5 % (20-40); Mean Corpuscular HGB Conc 33.8 g/dl (31.0-35.0); Mean Corpuscular Hemoglobin 29.2 pg (27.0-33.0); Mean Corpuscular Volume 86.6 fL (80.0-98.0); Mean Platelet Volume 8.7 fL (9.4-12.3); Monocytes Absolute Auto 0.9 X10*3/uL (0.1-1.2); Monocytes Percent Auto 8.8 % (2-11); Neutrophils Percent Auto 58.5 % (45-73); Platelet Count 258 X10*3/uL (160-400); Red Blood Count 4.62 X10*6/uL (4.20-5.50); Red Cell Distribution Width 12.5 % (11.0-16.0); White Blood Count 10.3 X10*3/uL (4.8-10.8)
[2025-02-27 13:42] LABS: D Dimer High Sensitivity 213 NG/ML
[2025-02-27 14:02] LABS: Alanine Aminotransferase 22 U/L (0-31); Albumin Level 4.3 g/dL (3.5-5.0); Alkaline Phosphatase 89 U/L (39-117); Anion Gap 13 (12-20); Aspartate Amino Transferase 27 U/L (5-31); Bilirubin Total 0.4 mg/dL (0.0-1.0); Blood Urea Nitrogen 13 mg/dL (9-16); Calcium 9.6 mg/dL (8.4-10.2); Carbon Dioxide 25 mmol/L (22-29); Chloride 107 mmol/L (96-108); Creatinine Clr Calc Pharmacy 81.5; Estimated Glomerular Filt Rate > 60; Glucose Random 96 mg/dL (60-115); Magnesium 2.4 mg/dL (1.6-2.6); Potassium 3.9 mmol/L (3.3-5.1); Sodium 141 mmol/L (135-145); Total Protein 7.8 g/dL (6.5-8.0)
[2025-02-27 14:10] LABS: Troponin-I High Sensitivity < 2.7 ng/L (<3.5-17.0)
[2025-02-27 14:16] LABS: Influenza A PCR NEGATIVE (Negative); Influenza B PCR NEGATIVE (Negative); Resp Syncy Virus RNA Qual PCR NEGATIVE (Negative); SARS COV2 PCR INHOUSE NEGATIVE (Negative)
[2025-02-27 19:35] VITALS: BP 180/76; PULSE 87; RESP 18; TEMP 37.2; O2SAT 96
--- OUTSIDE RECORDS SUMMARY | 2025-02-27 19:42 | XMS_ITS | Patient Health Record ---
Author Organization [facility] Address [address] [place] [address] Care Team Providers Care Professional Model Name Role Phone Pippa SERRATO, Yamini Primary Care Provider Hebert Munoz Jr Unavailable Reason For Referral No Information Medications Medication [...] Problem Status W/U Status Risk Notes Problem 648933523 Colon cancer screening (Z12.11) Active confirmed Problem 074885973 Encounter for other preprocedural examination (Z01.818) Active confirmed Problem History of polyp of colon (060768553) History of colon polyps (Z86.010) Active confirmed Problem 276847724 Gas (R14.3) Active confirmed Problem 327235635 Family history o f colon cancer (Z80.0) Active confirmed Plan Of Treatment Future Test Test Name Order Date COLONOSCOPY 12/29/2015 COLONOSCOPY 05/02/2021 Insurance Providers Payer Name Payer Address Payer Phone Subscriber Number Group Number Insured Name Patient Relationship to Insured Coverage Start Date Coverage End Date [facility] [address] [place] [phone] [id number] ROSETTE FONG Self - patient is the insured Medical (General) History Medical History History ICD Code /, personal history of tubular adenomas and family history colon cancer, five-year followup elevated cholesterol depression asthma Surgical History Surgery Date(Month/Year) eye surgery knee surgery-right
[2025-02-27 20:21] VITALS: BP 151/63; PULSE 73; RESP 16; TEMP 37.2; O2SAT 95
[2025-02-27 20:42] LABS: Troponin-I High Sensitivity < 2.7 ng/L (<3.5-17.0)
[2025-02-27] MEDS: iohexoL 350 MG/ML 100 ML INFUS..BTL IV (20:46)
[2025-02-27 23:00] VITALS: BP 123/50; PULSE 73; RESP 16; TEMP 37.2; O2SAT 95
[2025-02-27 23:06] VITALS: BP 123/50; PULSE 73; RESP 16; TEMP 37.2; O2SAT 95
== END 2025-02-27 23:07 | disposition home or self-care (01) ==
PROVIDERS: Physician Assistant Medical; Emergency Provider Internal Medicine; PCP Physician Assistant Surgical
DX: R07.89 Other chest pain (principal); R00.0 Tachycardia, unspecified; Z03.818 Encounter for observation for suspected exposure to other biological agents ruled out; Z79.899 Other long term (current) drug therapy
CPT/HCPCS: 0241U; 36415; 71275; 80053; 83735; 84484; 85025; 85379; 93005; 99284; Q9967

== ENCOUNTER → 2025-02-27 12:53 | Outpatient (BNV) | payer OTHER, SELFPAY | PROVIDERS: Emergency Provider Internal Medicine; PCP Physician Assistant Surgical; Visit Provider Internal Medicine | DX: R00.0 Tachycardia, unspecified (principal) | CPT/HCPCS: 93010 ==

== ENCOUNTER → 2025-02-27 19:53 | Outpatient (BNV) | payer OTHER, SELFPAY | PROVIDERS: Emergency Provider Internal Medicine; PCP Physician Assistant Surgical; Visit Provider Radiology Neuroradiology | DX: J98.11 Atelectasis (principal) | CPT/HCPCS: 71275 ==

== ENCOUNTER 2025-03-03 09:22 | Outpatient (REF) | payer OTHER, SELFPAY ==
--- NOTE | ~2025-03-03 | CT_ITS ---
EXAMINATION: CT HEAD WITHOUT CONTRAST CLINICAL INFORMATION: Left facial numbness. 65-year-old female. COMPARISON: None available. TECHNIQUE: Contiguous axial imaging was performed from the skull base to vertex without intravenous administration of contrast. This CT examination was performed using dose optimization techniques as appropriate, variously including the following: *Automated exposure control *Adjustment of mA and/or kV according to patient size (this includes techniques or standardized protocols for targeted exams where dose is matched to indication/reason for exam; i.e. extremities or head) *Use of iterative reconstruction technique FINDINGS: There is no evidence of intracranial hemorrhage or extra-axial fluid collection. There is no mass effect, or edema. No CT evidence of acute territorial infarct. Ventricles, sulci, and cisterns are normal in size and configuration for patient age. No hydrocephalus. No midline shift. Negative hyperdense MCA sign. Negative insular ribbon sign. Old left frontal focus of encephalomalacia, possibly from old infarct or trauma. No additional white matter abnormalities. Normal pituitary. Globes and orbital contents image normally. No extracranial soft tissue abnormalities. The paranasal sinuses, mastoid air cells, and tympanic cavities are normally aerated. No suspicious bony abnormalities. There are no acute fractures evident. CT/CT head/brain wo IV con IMPRESSION: 1. No acute intracranial abnormality. 2. Old left frontal focus of encephalomalacia. Electronically signed by: Son Chandler MD 03/03/2025 10:43 AM EDT
--- OUTSIDE RECORDS SUMMARY | 2025-03-03 10:27 | XMS_ITS | Patient Health Record ---
Author Organization [facility] Address [address] [place] [address] Care Team Providers Care Media Relations Manager Name Role Phone Pippa SERRATO, Yamini Primary Care Provider Hebert Munoz Jr Unavailable [phone] Reason For Referral No Information Medications Medication [...] Problem Status W/U Status Risk Notes Problem 976585438 Colon cancer screening (Z12.11) Active confirmed Problem 634695529 Encounter for other preprocedural examination (Z01.818) Active confirmed Problem History of polyp of colon (294364446) History of colon polyps (Z86.010) Active confirmed Problem 786572454 Gas (R14.3) Active confirmed Problem 826363621 Family history o f colon cancer (Z80.0) Active confirmed Plan Of Treatment Future Test Test Name Order Date COLONOSCOPY 12/29/2015 COLONOSCOPY 05/02/2021 Insurance Providers Payer Name Payer Address Payer Phone Subscriber Number Group Number Insured Name Patient Relationship to Insured Coverage Start Date Coverage End Date [facility] [address] [place] [phone] [id number] ROSETTE FONG Self - patient is the insured Medical (General) History Medical History History ICD Code /, personal history of tubular adenomas and family history colon cancer, five-year followup elevated cholesterol depression asthma Surgical History Surgery Date(Month/Year) eye surgery knee surgery-right
== END 2025-03-03 09:23 | disposition home or self-care (01) ==
LOC: HO.CT 09:22
PROVIDERS: PCP Physician Assistant Surgical; Visit Provider Physician Assistant Surgical
DX: R20.0 Anesthesia of skin (principal)
CPT/HCPCS: 70450

== ENCOUNTER → 2025-03-03 09:27 | Outpatient (BNV) | payer OTHER, SELFPAY | PROVIDERS: PCP Physician Assistant Surgical; Visit Provider Radiology Diagnostic Radiology | DX: G51.9 Disorder of facial nerve, unspecified (principal) | CPT/HCPCS: 70450 ==

== ENCOUNTER → 2025-04-02 13:37 | Outpatient (REF) | payer OTHER, SELFPAY ==
--- NOTE | 2025-04-02 13:45 | CA_ITS ---
Transthoracic Echocardiogram Patient (Last, First, Middle): Lila Joseph, Gender: Female Date of : 1960 Age: 65 Procedure Date: 04/02/2025 Procedure Type: Transthoracic Echocardiogram Location: OP Height: 162.56 cm Weight: 77.11 kg BSA: 1.83 m2 Heart Rate: bpm BP: 132 / 90 mmHg Pear Picker: JOANNA Referring MD: Randolph Tomlinson PA-C Symptoms: CHEST PAIN Study Quality: Fair ECG Rhythm: Sinus Conclusions: - The left ventricular systolic function is normal. The calculated ejection fraction is 63% by biplane method. - No obvious valvular pathology seen on this study. Findings Left Ventricle Normal left ventricular cavity size. There is normal left ventricular wall thickness. The left ventricular systolic function is normal. The calculated ejection fraction is 63% by biplane method. There is no evidence of regional wall motion abnormalities. Diastolic function is normal for age. Right Ventricle Normal right ventricular cavity size and systolic function. Atria Both atria are normal in size. Aortic Valve There is a normal trileaflet aortic valve. There is no aortic valve stenosis. There is no aortic valve regurgitation. Mitral Valve The mitral valve appears normal. There is trace mitral valve regurgitation. There is no mitral valve stenosis. Pulmonic Valve The pulmonic valve is likely normal. Tricuspid Valve There is trace tricuspid valve regurgitation. There is no evidence of pulmonary hypertension. Great Vessels The asc aorta is normal in size. Venous The inferior vena cava is normal in size and collapses greater than 50% with inspiration. Pericardium/Pleural Widened pericardial space, unable to distinguish between adipose tissue and effusion. Prior Study Comparison No prior study available for comparison. Recommendations, Care & Conclusions No obvious valvular pathology seen on this study. Measurements 2D Linear Measurements IVSd: 0.88 0.6-0.9/0.6-1.0 cm LVIDd: 4.57 3.9-5.3/4.2-5.9 cm LVIDd Index: 2.50 2.4-3.2/2.2-3.1 cm/m2 LVIDs: 2.84 2.0-3.6 cm LVPWd: 0.72 0.7-1.1 cm LA Diam: 3.60 2.7-3.8/3.0-4.0 cm LAIDs Index: 1.97 1.5-2.3 cm/m2 LV Mass: 145.14 67-162/88-224 g LV Mass Index: 79.31 43-95/49-115 g/m2 LVOT Diam: 2.00 3.0+(-)1.3 cm 2D Systolic Function EF 4C: 63.50 >55% EF 2C: 63.40 >55% EF BiP: 63.30 >55% Mitral Valve MV Pk E: 0.48 MV PK A: 0.72 MV Decel Time: 169.00 E/A: 0.70 E'Lateral: 9.36 E'Medial: 6.09 E/E' Med: 7.90 E/E' Lat: 5.10 PHT: 50.00 MVA PHT: 4.40 Decel [place]: 2.84 Aortic Valve AoV Pk [place]rose: 1.29 AoV Mn [place]rose: 0.90 AoV VTI: 0.29 AoV Pk Grad: 7.00 Aov Mn Grad: 4.00 LUDMILA Cont.VTI: 2.33 LVOT LVOT Pk [place]rose: 1.13 LVOT Mn [place]: 0.67 LVOT VTI: 0.21 LVOT Pk Grad: 5.00 LVOT Mn Grad: 2.00 LVOT Diam: 2.00 LVOT Area: 3.14 Diastolic Function MV Pk E: 0.48 MV Pk A: 0.72 E/A: 0.70 E'Medial: 6.09 E/E' Med: 7.90 E' Laterial: 9.36 E/E' Lat: 5.10 Right Ventricle TAPSE (mm): 22.00 TVS' [place]rose: 11.90 Tricuspid Valve TR Pk Ambrose: 2.35 TR Pk Grad: 22.00 RA Press: 3.00 RVSP: 25.00 Great Vessels Aorta Sinus of Valsalva: 3.05 2.0-3.5 cm Ao Asc: 3.50 2.1-3.4 cm Updated in Other Vendor System with Status of Final Jose Haq MD electronically signed on 04/03/2025 3:21:44 PM with status of Final
--- OUTSIDE RECORDS SUMMARY | 2025-04-02 14:37 | XMS_ITS | Patient Health Record ---
Author Organization [facility] Address [address] [place] [address] Care Team Providers Care Medical Billing Coder Name Role Phone Pippa SERRATO, Yamini Primary Care Provider Hebert Munoz Jr Unavailable [phone] Reason For Referral No Information Medications Medication [...] Problem Status W/U Status Risk Notes Problem [id number] Colon cancer screening (Z12.11) Active confirmed Problem 345082935 Encounter for other preprocedural examination (Z01.818) Active confirmed Problem History of colon polyps (Z86.010) Active confirmed Problem 621878602 Gas (R14.3) Active confirmed Problem 265244858 Family history o f colon cancer (Z80.0) Active confirmed Plan Of Treatment Future Test Test Name Order Date COLONOSCOPY 12/29/2015 COLONOSCOPY 05/02/2021 Insurance Providers Payer Name Payer Address Payer Phone Subscriber Number Group Number Insured Name Patient Relationship to Insured Coverage Start Date Coverage End Date [facility] [address] [facility] [phone] [id number] ROSETTE FONG Self - patient is the insured Medical (General) History Medical History History ICD Code /, personal history of tubular adenomas and family history colon cancer, five-year followup elevated cholesterol depression asthma Surgical History Surgery Date(Month/Year) eye surgery knee surgery-right
== END ==
LOC: HO.CARD 13:37
PROVIDERS: PCP Physician Assistant Surgical; Visit Provider Physician Assistant Surgical
DX: R07.9 Chest pain, unspecified (principal)
CPT/HCPCS: 93306

== ENCOUNTER → 2025-04-02 13:45 | Outpatient (BNV) | payer OTHER, SELFPAY | PROVIDERS: PCP Physician Assistant Surgical; Visit Provider Internal Medicine | DX: R07.9 Chest pain, unspecified (principal) | CPT/HCPCS: 93306 ==

== ENCOUNTER → 2025-04-22 10:21 | Outpatient (REF) | payer OTHER, SELFPAY ==
--- NOTE | 2025-04-22 10:26 | CA_ITS ---
Acquisition Time: 2025-04-22 10:54:10 Total Exercise Time: 00:05:00 Test Indications: CP, SOB Medications: SEE H&P Protocol: MARIANNE Max HR: 162 BPM 105% of Pred: 153 BPM Max BP: 184/90 mmHG Max Work Load: 7.0 METS Exercise stress test with exercise 5 mins of Marianne Protocol, achieving 98% MPHR, with reports of 1/10 mid chest discomfort at baseline that didnt change with exercise, with moderate SOB, with isolated PVCs, with normotensive response to exercise- baseline BP of 140/100. Without EKG changes meeting criteria for ischemia. In recovery, breathing returned to baseline. Echo images were obtained by tech at rest and post peak exercise. Definity contrast utilized. Test reviewed with Dr. Garcia. Referred By: Randolph Tomlinson Electronically Signed By: Marcell Soares
--- OUTSIDE RECORDS SUMMARY | 2025-04-22 11:20 | XMS_ITS | Patient Health Record ---
Author Organization [facility] Address [address] [place] [address] Care Team Providers Care Lead Pastor Name Role Phone Pippa SERRATO, Yamini Primary Care Provider Hebert Munoz Jr Unavailable [phone] Reason For Referral No Information Medications Medication [...] Problem Status W/U Status Risk Notes Problem [id number] Colon cancer screening (Z12.11) Active confirmed Problem 644204140 Encounter for other preprocedural examination (Z01.818) Active confirmed Problem History of colon polyps (Z86.010) Active confirmed Problem 818176955 Gas (R14.3) Active confirmed Problem 223303822 Family history o f colon cancer (Z80.0) Active confirmed Plan Of Treatment Future Test Test Name Order Date COLONOSCOPY 12/29/2015 COLONOSCOPY 05/02/2021 Insurance Providers Payer Name Payer Address Payer Phone Subscriber Number Group Number Insured Name Patient Relationship to Insured Coverage Start Date Coverage End Date [facility] [address] [facility] [phone] [id number] ROSETTE FONG Self - patient is the insured Medical (General) History Medical History History ICD Code /, personal history of tubular adenomas and family history colon cancer, five-year followup elevated cholesterol depression asthma Surgical History Surgery Date(Month/Year) eye surgery knee surgery-right
== END ==
LOC: HO.CARD 10:21
PROVIDERS: PCP Physician Assistant Surgical; Visit Provider Physician Assistant Surgical
DX: R07.9 Chest pain, unspecified (principal)
CPT/HCPCS: 93350; Q9957

== ENCOUNTER → 2025-04-22 10:26 | Outpatient (BNV) | payer OTHER, SELFPAY | PROVIDERS: PCP Physician Assistant Surgical | DX: R06.02 Shortness of breath (principal); R07.9 Chest pain, unspecified; I49.3 Ventricular premature depolarization; R94.31 Abnormal electrocardiogram [ECG] [EKG] | CPT/HCPCS: 93016; 93018; 93350; 93352 ==

== ENCOUNTER 2025-06-23 12:55 | Outpatient (AMB) | payer OTHER, SELFPAY ==
[2025-06-23 13:32] VITALS: BP 130/68; PULSE 90
--- NOTE | 2025-06-23 13:32 | MHC.OFFVIS ---
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 The chest pain is described as a pulling sensation that sometimes feels like a stabbing pain, occurring randomly without a clear trigger. The pain has been present for a long time and is not consistently associated with physical activity, such as walking or climbing stairs. The patient has a significant family history of coronary artery disease, and her brother having undergone bypass surgery. The patient reports arthritis in her hands and a history of neck issues, which were evaluated with an MRI in 2017. The patient underwent a stress test, which did not show signs of cardiac blockage, and the pain did not change during exercise. [facility] Medical History Low back pain Arthritis Elevated cholesterol Asthma Surgical History Hx of colonoscopy History of total right knee replacement H/O eye surgery Family History (Updated 06/23/25 @ 13:53 by Jose Haq MD) Father Colon cancer Brother Hx of CABG Social History Alcohol intake: current Alcohol intake frequency: a few times a month Patient Tobacco Use Status: Never used Tobacco Review of Systems Const Reports headache(s) and Denies weakness ENT Denies dizziness and Reports headache(s) Card Denies chest pain, Denies chest pain with activity, Denies syncope, Denies rapid heart rate, Denies pedal edema, Denies edema, Denies leg edema, Denies lightheadedness, Denies palpitations, Reports dyspnea, Reports dyspnea on exertion and Denies orthopnea Resp Denies cough, Reports dyspnea and Reports dyspnea on exertion GI Denies hematochezia and Denies change in stool character Musc Denies abnormal gait, Denies muscle cramps, Denies muscle weakness, Denies numbness, Denies radiating pain into limb and Denies tingling Neuro Denies abnormal gait, Denies dizziness, Denies syncope, Reports headache(s), Denies numbness, Denies tingling and Denies weakness Endo Denies palpitations Physical Exam Vital Signs: Last Vital Signs Pulse 90 06/23/25 13:32 BP 130/68 06/23/25 13:32 Const General: comfortable and no acute distress Orientation/consciousness: patient oriented x3 HEENT Other: Unremarkable Head: Yes normal to inspection Neck Neck: Yes normal visual inspection Chest Chest palpation & inspection: normal inspection of the chest Resp Auscultation: clear to auscultation bilaterally Cardio Palpation: normal PMI Heart sounds: S1 normal heart sound present, S2 normal heart sound present, no gallops, no murmurs and no rubs GI Palpation (GI): Soft to palpation Back/Spine/Pelvis Other: unremarkable Skin General skin exam: no rashes or lesions noted Neuro General: patient oriented x3 Extrem General: Yes normal to inspection Psych Mental Status: mental status grossly normal Assessment & Plan Assessment & Plan (1) Precordial chest pain: Code(s): R07.2 - Precordial pain Category: Medical Plan In the echocardiogram, LVEF is 63%. No wall motion abnormalities and otherwise unremarkable. In the stress test, she reached 7 METS on Isac protocol and reached target heart rate; had baseline chest pain that did not change with exercise and there was no clear EKG or echocardiographic evidence of ischemia. Overall, less likely this pain is cardiac in nature. However, she continues to complain of the same and there is a strong family history including bypass surgery in her brother. Hence we will pursue coronary CTA for further evaluation. Follow up after the above. Orders: Orders CT Cardiac Coronary Angio Today I25.10 - Atherosclerotic heart disease of [place] coronary artery without angina pectoris, R07.2 - Precordial pain Basic Metabolic Panel Today R07.2 - Precordial pain Coding Level of Care Code New Pt Level 4 (85763) Complex EM visit Add On G2211 Diagnoses Precordial chest pain R07.2
--- OUTSIDE RECORDS SUMMARY | 2025-06-23 13:41 | XMS_ITS | Patient Health Record ---
Author Organization [facility] Address [address] [place] [address] Care Team Providers Care Prize Fighter Name Role Phone Pippa SERRATO, Yamini Primary [...] Problem Status W/U Status Risk Notes Problem 230043470 Colon cancer screening (Z12.11) Active confirmed Problem 504100605 Encounter for other preprocedural examination (Z01.818) Active confirmed Problem History of colon polyps (Z86.010) Active confirmed Problem 876901804 Gas (R14.3) Active confirmed Problem 033617049 Family history o f colon cancer (Z80.0) Active confirmed Plan Of Treatment Future Test Test Name Order Date COLONOSCOPY 12/29/2015 COLONOSCOPY 05/02/2021 Insurance Providers Payer Name Payer Address Payer Phone Subscriber Number Group Number Insured Name Patient Relationship to Insured Coverage Start Date Coverage End Date [facility] [address] [facility] [phone] [id number] ROSETTE FONG Self - patient is the insured Medical (General) History Medical History History ICD Code /, personal history of tubular adenomas and family history colon cancer, five-year followup elevated cholesterol depression asthma Surgical History Surgery Date(Month/Year) eye surgery knee surgery-right
--- OUTSIDE RECORDS SUMMARY | 2025-06-23 13:41 | XMS_ITS | Clinical Summary ---
Author Organization [facility] Address [address] [place] [phone] Phone Care Team Providers Care Utility System Operator Name Role Phone Randolph Tomlinson PA-C Primary Care Provider [phone] Allergies No known active allergies Medications ibuprofen (ADVIL ORAL) Take by mouth. Activ e cholecalciferol (VITAMIN D3) 25 MCG (1,000 unit) tablet Take 1,000 Units by mouth daily. Active ELDERBERRY FRUIT ORAL Take 1 tablet by mouth daily. Active triamcinolone acetonide 0.1 % cream Apply topically 2 (two) times a day as needed. To external ears 15 g 2 4 Active albuterol (PROAIR HFA) 90 mcg/actuation inhalerIndication s:Moderate persistent asthma without complication Inhale 2 puffs into the lungs every 4 (four) hours as needed for wheezing. 8 g 3 4 Active CALCIUM ORAL Take 500 mg by mouth daily. Active Medication-Free Text Take 2 tablets by mouth daily. Nureva for memory Active Medication-Free Text Take 2 tablets by mouth daily. Tumeric/black pepper Active rosuvastatin (CRESTOR) 10 MG tabletIndications :Elevated LDL cholesterol level Take 1 tablet (10 mg total) by mouth daily. 14 tablet 5 Active Active Problems Problem Noted Date Diagnosed Date Left-sided chest pain 02/23/2025 Assessment & Plan (03/04/2025 5:11 PM EDT): Left-sided chest pain with some shortness of breath which has been intermittent now constant. Patient has been seen by the emergency department and underwent a CT chest which was negative for any acute pathology. She did have some noted scarring of her lungs. Patient also has undergone EKGs which reveal heart rate of [address]-T wave changes to suggest ischemia Patient mentions today is a better day however did notice some shortness of breath this morning. She continues to have left-sided chest discomfort -Cardiology referral with Dr. Sears -Stress test patient would like to have this done at [facility] -Echocardiogram patient would like to have this done at [facility]. Assessment & Plan (02/27/2025 1:35 PM EDT): Patient with intermittent left-sided chest pain which has been ongoing for quite some time now with the most recent episode for the past few days. Patient notes that left-sided chest pain as well as breast pain. She also notes that she has had some referred pain from her lymph nodes. On physical exam she is noted to have a palpable mass at the 12 o'clock position of the left breast which is tender to palpation measures about 1 cm with palpable left axillary lymph nodes. She also has noted tenderness to palpation over the intercostal muscles. Differential diagnosis can include costochondritis versus breast mass versus cardiac disease vs asthma vs pneumonia. EKG obtained in the office showing sinus rhythm without ST-T wave abnormalities HR 85 -I will obtain a diagnostic left breast mammogram and ultrasound of the left breast -In the event that it is costochondritis I have also recommended that the patient take ibuprofen as needed for pain. -CXR -stress test [facility] -patient was advised if her symptoms worsened or became constant to seek medical attention by going to the ER, she understands and acknowledges. Left facial numbness 02/23/2025 Assessment & Plan (02/23/2025 12:27 PM EDT): She mentions intermittent facial numbness located in the left V2 distribution as well as at times and on occasion in V1 into the left side of the scalp. Given his history I will obtain a head CT to rule out any acute pathology such as underlying stroke. Breast cancer screening by mammogram 01/06/2025 Acute non-recurrent maxillary sinusitis 01/06/20 25 Routine general medical exam [facility] 08/12/2024 Assessment & Plan (08/12/2024 8:20 AM EDT): General Health Maintenance -Order routine labs. -Continue regular dental and eye exams. -Encourage balanced diet and regular exercise. Osteoporosis Screening No previous DEXA scan, patient reports bone aches. -Order DEXA scan for osteoporosis screening. Eczema of external ear, bilateral 03/30/2023 Mild intermittent asthma without complication Assessment & Plan (08/12/2024 8:20 AM EDT): Seasonal exacerbations related to allergies, managed with albuterol and allergy medication as needed. -Continue current management. Resolved Problems Problem Noted Date Diagnosed Date Resolved Date Diverticulosis 08/12/2024 01/06/2025 Assessment & Plan (08/12/2024 8:19 AM EDT): History of diverticulitis with occasional pain, but no recent episodes. -No changes to current management. Family history of malignant neoplasm of colon 03/30/20 23 03/30/2023 01/06/2025 Overview (03/30/2023): Father age 47 Elevated blood pressure read ing without diagnosis of hypertension 03/30/2023 01/06/2025 Chronic sinusitis of both maxillary sinuses 11/08/2021 01/06/2025 Assessment & Plan (11/08/2021 4:54 PM EST): Through seasonal allergies twice yearly usually in the tail end of fall beginning of winter and then in the springtime she has recurrent sinusitis. Patient requesting antibiotic, now with 2 months of trials of saline would be reasonable to shrink inflammation of the sinuses by applying antibiotics. Azithromycin 500 mg daily. After successful treatment consider fluticasone nasal spray as a preventative measure. 15 minutes for this visit taken. Seborrheic dermatitis 12/26/20192024 Allergic rhinitis 10/09/2017 01/06/2025 Elevated LDL cholesterol level 10/09/2017 01/06/2025 Assessment & Plan (08/12/2024 8:19 AM EDT): On Crestor for cholesterol management. -Order lipid panel to assess efficacy of current medication. Overweight 10/09/2017 01/06/2025 Primary osteoarthritis of right knee 10/09/2017 01/06/2025 Seasonal allergies 10/09/2017 Urinary frequency 10/09/2017 01/06/2025 Encounters Date Type Department Care Team Description 06/22/2025 Telephone [facility] Internal Medicine [address] [place] [address] Randolph Tomlinson PA-C Facial Pain 06/03/2025 Telephone [facility] Internal Medicine [address] [place] [address] Randolph Tomlinson PA-C Results 06/03/2025 Orders Only [facility] Internal [facility] [address] [place] [address] ProviderStevan MD 04/24/2025 Refill [facility] Internal [facility] [address] [facility] [place] [address] Randolph Tomlinson PA-C Follow-up; Medication Problem 04/07/2025 Telephone [facility] Internal [facility] [address] [place] [address] Randolph Tomlinson PA-C Test Results 04/06/2025 Orders Only [facility] Internal [facility] [address] [place] [address] Provider, MD Stevan from Last 3 Months Immunizations Immunization Administration Dates Next Due COVID-19 (Pre-09/17) Moderna Vaccine, mRNA, PF 0 03/31/2021,03/03/2021 Influenza Quadrivalent Preservative Free IM 07/27,11/04/2018 Influenza Recombinant Gogo valent Preservative Free IM 08/25/2019 Influenza Trivalent Preservative Free IM 017,09/28/2016 Tdap 08/25/2019 Zoster recombinant 06/22/2020,01/05/2020 Family History Medical History Relation Comments Diabetes Brother Heart disease Brother Colon cancer Father Stroke Mother Cancer Sibling Scleroderma Sister No Known Problems Son 1 Diverticulitis Son 2 Relation Status Comments Brother Alive kidney cancer Father age 47 colon cancer Mother age 82 ( in sleep) Sibling Alive Sister age 65 Son 1 Alive Son 2 Alive Social History Tobacco Use Types Packs/Day Years Used Date Smoking Tobacco: Never Smokeless Tobacco: Never Alcohol Use Standard Drinks/Week Comments Yes 0 (1 standard drink = 0.6 oz pur e alcohol) 1-2 drinks, monthly or less Child or Family Care Answer Date Record ed Do you have problems with on e of the following making it difficult for you to work, study, or receive health care? No 01/06/2025 Education Answer Date Recorded Are you interested in more education? Not on diego e 03/30/2025 Are you concerned about learning? Not on file 03/30/2025 No 03/30/2025 No 03/30/2025 Food Answer Date Recorded Within the past 6 months we worried whether our food would run out before we got money to buy more. Never True 01/06/2025 Within the past 6 months the food we bought just didn't last and we didn't have enough money to get more. Never True Residential Stability Answer Date Recor ded What is your housing situation today? I have tanya shree 01/06/2025 How many times have you move d in the past 12 months? Zero (I did not move) 01/06/2025 Paying for Meds Answer Date Recorded Do you have trouble paying for medicines? No 01/06/2025 Paying Utility Bills Answer Date Record ed Do you have trouble paying your heating or elect ricity bill? No 01/06/2025 Transportation Answer Date Recorded Has the lack of transportati on kept you from medical appointments or from getting medications? No 01/06/2025 Unemployment Answer Date Recorded Are you currently unemployed or working on a part-time or temporary basis, and looking for work? No 03/29/2022 Digital Access Answer Date Recorded No 01/06/2025 No 01/06/2025 Do you have reliable internet access at home? I choose not to answer 01/06/2025 Do you have a device (e.g., phone, tablet, computer) with a working camera? I choose not to answer 01/06/2025 Intimate Partner Violence Answer Date R ecorded Denied Basic Needs Not on file 01/06/2025 In the past 12 months have y ou been in a relationship with a person who hurts, threatens, or tries to control you? No 01/06/2025 Worried food would run out Not on file 01/06 In the past 12 months have y ou been in a relationship with a person who hurts, threatens, or tries to control you? No 01/06/2025 Comments No Sex and Gender Information Value Date Recorded Sex Assigned at Not on file Legal Sex Female 9:52 PM EDT Gender Identity Not on file Sexual Orientation Not on file Last Filed Vital Signs Vital Sign Reading Time Taken Comments Blood Pressure 116/80 03/04/2025 1:59 PM EDT Pulse 86 03/04/2025 1:59 PM EDT Temperature 36.6 C (97.8 F) 08/09/2020 3:52 PM EDT Respiratory Rate 22 03/04/2025 1:59 PM EDT Oxygen Saturation 98% 03/04/2025 1:59 PM EDT Inhaled Oxygen Concentration - - Weight 74.8 kg (165 lb) 05/02/2018 12:04 PM EDT Height 160.7 cm (5' 3.25 ) 03/29/2022 9:29 AM ED T Body Mass Index 28.77 05/02/2018 12:04 PM EDT Plan of Treatment Upcoming Encounters Date Type Department Care Team (Late st Contact Info) Description 01/12/2026 2:40 PM EST Office Visit [facility] Internal Medicine [address] [place] [address] Randolph Tomlinson PA-C [address] [place] [address] Health Maintenance Due Date Last Done Comments PNEUMOCOCCAL VACCINES (50+ years) (1 of 2 - PCV) 1977 COLOGUARD 2003 FIT TEST 2003 FOBT 2003 SIGMOIDOSCOPY 2003 VIRTUAL COLONOSCOPY 2003 RSV VACCINE (1 - Risk 60-74 years 1-dose series) 2018 COVID-19 VACCINE ( season) 2024 03/31/2021, 03/03/2021 DEPRESSION SCREENING 01/06/2026 01/06/2025 COLONOSCOPY 05/20/2026 05/20/2021, 03/10/2016 COLORECTAL CANCER SCREENING 05/20/2026 MAMMOGRAM 01/22/2027 01/22/2025, 12/27, 03/30/2023, Additional history exists Adult Td,Tdap Booster 08/25/2029 08/25/2019 LIPID PANEL 01/20/2030 01/20/2025, 12/28, 01/20/2025, Additional history exists HEPATITIS C SCREENING Completed 09/03/2019 ZOSTER VACCINES Completed 06/22/2020, 01/05/2020 OSTEOPOROSIS SCREENING INITIAL (ONE-TIME) Completed 09/03/2024 SMOKING STATUS SCREENING (Once After 26 Yrs) Completed 02/23/2025 HEPATITIS A VACCINES Aged Out No long er eligible based on patient's age to complete this topic HIB VACCINES Aged Out No longer eligi ble based on patient's age to complete this topic MENINGOCOCCAL VACCINES (ACWY) Aged Out No longer eligible based on patient's age to complete this topic MENINGOCOCCAL VACCINES (B) Aged Out N o longer eligible based on patient's age to complete this topic Medical Devices Not on file Procedures Procedure Name Priority Date/Time Associated Diagnosis Comments OUTSIDE STRESS Routine 04/22/2025 9:25 AM EDT OUTSIDE ECHO Routine 04/22/2025 9:25 AM EDT OUTSIDE ECHO Routine 04/02/2025 10:43 AM EDT OUTSIDE ECHO Routine 04/02/2025 9:26 AM EDT HM MAMMOGRAPHY Routine 01/22/2025 8:05 AM EST OUTSIDE HDL Routine 01/20/2025 BD DXA SCREENING Routine 09/03/2024 Health care maintenance Menopause HM COLONOSCOPY FOR RESULT ENTRY ONLY Routine 05/20/2021 HEPATITIS C ANTIBODY, QUALITATIVE Routine 09/03/2019 11:44 AM EDT Encounter for screening for HIV from Last 3 Months or Most Recently Relevant to Health Maintenance Results * Outside Stress Report Only (04/22/2025 9:25 AM EDT) [facility] Provider CV STRESS ORDERABLES Torie l Result * Outside Echo Report Only (04/22/2025 9:25 AM EDT) [facility] Provider CV ECHO ORDERABLES Final Result * Outside Echo Report Only (04/02/2025 10:43 AM EDT) Result [facility] Provider CV ECHO ORDERABLES Final Result * Outside Echo Report Only (04/02/2025 9:26 AM EDT) Result [facility] Provider CV ECHO ORDERABLES Final Result * HM MAMMOGRAPHY FOR RESULT ENTRY ONLY (01/22/2025 8:05 AM EST) [facility] Provider HEALTH MAINTENANCE Final Result * Outside HDL (01/20/2025) HDL - External 54 40 - 80 mg/dL Result [facility] Provider LAB BLOOD ORDERABLES Torie l Result * DXA Screening (09/03/2024) Anatomical Region Laterality Modality Bone Density Bone Density 09/03/2024 Impressions 09/03/2024 10:30 AM EDT Osteopenia Rikki Jorgensen CNP IMG BD BONE DENSITY DEXA Edited Result - Final * HM COLONOSCOPY FOR RESULT ENTRY ONLY (05/20/2021) Result [facility] Provider HEALTH MAINTENANCE Final Result * Hepatitis C antibody, qualitative (09/03/2019 11:44 AM EDT) HCV NON-REACTIV E NON-REACTI VE [facility] Blood 09/03/2019 11:4 4 AM EDT 09/03/2019 11:51 AM EDT us Yamini Das NP LAB BLOOD ORDERABLES Final Resu lt [address] [id number] from Last 3 Months or Most Recently Relevant to Health Maintenance [facility] [address] [place] [address] [place] [address] [facility] [address] [place] [address] Member Subscriber Plan / Payer (Ef fective 2017-Present) Name:Lila JOSEPH Relation to Subscriber:Self Name:Lila JOSEPH Payer ID:Not on file Type:HMO Address: [place] [id number] Care Teams Utility System Operator Relationship Specialty Start Date End Date Randolph Tomlinson PA-C [address] [place] [phone] [email or web address] PCP - General Physician Java Developer Architect 01/06/25 Additional Source Comments The information contained in this document represents components of the legal health record. It is not the complete legal health record.[facility]
== END 2025-06-23 13:58 | disposition home or self-care (01) ==
LOC: HO.HCS 12:56
PROVIDERS: PCP Physician Assistant Surgical; Visit Provider Internal Medicine
DX: R07.2 Precordial pain (principal)
CPT/HCPCS: 99214; G2211

== ENCOUNTER 2025-08-18 10:48 | Outpatient (REF) | payer OTHER, SELFPAY ==
[2025-08-18 12:38] LABS: Anion Gap 12 (12-20); Blood Urea Nitrogen 11 mg/dL (9-16); Calcium 9.9 mg/dL (8.4-10.2); Carbon Dioxide 27 mmol/L (22-29); Chloride 108 mmol/L (96-108); Estimated Glomerular Filt Rate > 60; Potassium 4.0 mmol/L (3.3-5.1); Sodium 143 mmol/L (135-145)
--- OUTSIDE RECORDS SUMMARY | 2025-08-18 13:20 | XMS_ITS | Clinical Summary ---
Author Organization [facility] Address [address] [place] [phone] Phone Care Team Providers Care Performance Reporter Name Role Phone Randolph Tomlinson PA-C Primary Care Provider [phone] Allergies No known active allergies Medications ibuprofen (ADVIL ORAL) Take by mouth. Active cholecalciferol (VITAMIN D3) 25 MCG (1,000 unit) tablet Take 1,000 Units by mouth daily. Active ELDERBERRY FRUIT ORAL Take 1 tablet by mouth daily. Active triamcinolone acetonide 0.1 % cream Apply topically 2 (two) times a day as needed. To external ears 15 g 2 12/24/19 24 Active albuterol (PROAIR HFA) 90 mcg/actuation inhalerIndicati ons:Moderate persistent asthma without complication Inhale 2 puffs into the lungs every 4 (four) hours as needed for wheezing. 8 g 3 12/24/19 24 Active CALCIUM ORAL Take 500 mg by mouth daily. Active Medication-Free Text Take 2 tablets by mouth daily. Nureva for memory Active fluticasone propionate (FLONASE) 50 mcg/actuation nasal sprayIndication s:Acute recurrent pansinusitis 1 spray by Nasal route daily. 16 g 06/25/20 25 Active rosuvastatin (CRESTOR) 10 MG tabletIndicatio ns:Elevated LDL cholesterol level Take 1 tablet (10 mg total) by mouth daily. 90 tablet 3 07/23/20 25 Active rosuvastatin (CRESTOR) 10 MG tabletIndicatio ns:Elevated LDL cholesterol level Take 1 tablet (10 mg total) by mouth daily. 14 tablet 04/24/20 25 025 Discontinued(Re order) rosuvastatin (CRESTOR) 10 MG tabletIndicatio ns:Elevated LDL cholesterol level Take 1 tablet (10 mg total) by mouth daily. 14 tablet 07/21/20 025 Discontinued Active Problems Problem Noted Date Diagnosed Date Acute recurrent pansinusitis 06/25/2025 Assessment & Plan (06/25/2025 3:03 PM EDT): Begin amoxicillin as prescribed. Will also begin daily Flonase, reviewed administration instructions. Call if not improving over 72 hours, or if any fever, worsened symptoms. Left-sided chest pain 02/23/2025 Assessment & Plan [...] would like to have this done at [facility] -Echocardiogram patient would like to have this done at [facility]. Assessment & Plan (02/27/2025 1:35 PM EDT): [...] Routine general medical exam ination at a health care facility 08/12/2024 Assessment & Plan (08/12/2024 [...] Encounters Date Type Department Care Team Description 07/21/2025 Refill [facility] Internal Medicine [address] [facility] [place] [address] Randolph Tomlinson PA-C Medication Refill 06/25/2025 2:30 PM EDT Office Visit [facility] Internal Medicine [address] [facility] [place] [address] Alicia Keen, QUIQUE Acute recurrent pansinusitis (Primary Dx) 06/22/2025 Telephone [facility] Internal Medicine [address] [facility] [place] [address] Randolph Tomlinson PA-C Facial Pain 06/03/2025 Telephone [facility] Internal Medicine [address] [facility] [place] [address] Randolph Tomlinson PA-C Results 06/03/2025 Orders Only [facility] Internal Medicine [address] [facility] Jenaro Miller, RENÉE [address] Provider, MD Stevan from Last 3 Months Immunizations Immunization Administration Dates Next Due COVID-19 (Pre-09/17) Moderna Vaccine, mRNA, PF 0 03/31/2021,03/03/2021 INFLUENZA, SPLIT VIRUS, TRIVALENT PF 08/08/2017, 09/28/2016 Influenza Quadrivalent Preservative Free IM 07/27,11/04/2018 Influenza Recombinant Gogo valent Preservative Free IM 08/25/2019 Tdap 08/25/2019 Zoster recombinant 06/22/2020,01/05/2020 Family History [...] your housing situation today? I have tanya sing 01/06/2025 How many times have you move [...] Sign Reading Time Taken Comments Blood Pressure 116/74 06/25/2025 2:24 PM EDT Pulse 94 06/25/2025 2:24 PM EDT Temperature 36.9 C (98.4 F) 06/25/2025 2:24 PM EDT Respiratory Rate 23 06/25/2025 2:24 PM EDT Oxygen Saturation 98% 06/25/2025 2:24 PM EDT Inhaled Oxygen Concentration - - Weight 74.8 kg (165 lb) 05/02/2018 12:04 PM EDT Height 160.7 cm (5' 3.25 ) 03/29/2022 9:29 AM ED T Body Mass Index 28.77 05/02/2018 12:04 PM EDT Plan of Treatment Upcoming Encounters Date Type Department Care Team (Late st Contact Info) Description 01/12/2026 2:40 PM EST Office Visit [facility] [place] Internal Medicine [address] [place] [address] Randolph Tomlinson PA-C [address] [place] [address] [email or web address] Health Maintenance Due Date Last Done Comments PNEUMOCOCCAL VACCINES (50+ years) (1 of 2 - PCV) 1977 COLOGUARD 2003 FIT TEST 2003 FOBT 2003 SIGMOIDOSCOPY 2003 VIRTUAL COLONOSCOPY 2003 RSV VACCINE (1 - Risk 60-74 years 1-dose series) 2018 INFLUENZA VACCINE (#1) 2025 , 08/25/2019, 11/04/2018, Additional history exists COVID-19 VACCINE (2024- season) 2025 03/31/2021, 03/03/2021 DEPRESSION SCREENING 01/06/2026 01/06/2025 COLONOSCOPY 05/20/2026 05/20/2021, 03/10/2016 COLORECTAL CANCER SCREENING 05/20/2026 MAMMOGRAM 01/22/2027 01/22/2025, 12/27, 03/30/2023, Additional history exists Adult Td,Tdap Booster 08/25/2029 08/25/2019 LIPID PANEL 01/20/2030 01/20/2025, 12/28, 01/20/2025, Additional history exists HEPATITIS C SCREENING Completed 09/03/2019 ZOSTER VACCINES Completed 06/22/2020, 01/05/2020 OSTEOPOROSIS SCREENING INITIAL (ONE-TIME) Completed 09/03/2024 SMOKING STATUS SCREENING (Once After 26 Yrs) Completed 06/25/2025 HEPATITIS A VACCINES Aged Out No long [...] Procedure Name Priority Date/Time Associated Diagnosis Comments HM MAMMOGRAPHY Routine 01/22/2025 8:05 AM EST OUTSIDE HDL Routine 01/20/2025 BD DXA SCREENING Routine 09/03/2024 Health care maintenance Menopause HM COLONOSCOPY FOR RESULT ENTRY ONLY Routine 05/20/2021 HEPATITIS C ANTIBODY, QUALITATIVE Routine 09/03/2019 11:44 AM EDT Encounter for screening for HIV from Last 3 Months or Most Recently Relevant to Health Maintenance Results * HM MAMMOGRAPHY FOR RESULT ENTRY ONLY (01/22/2025 8:05 AM EST) Historical Provider HEALTH MAINTENANCE Final Result * Outside HDL (01/20/2025) HDL - External 54 40 - 80 mg/dL Historical Provider LAB BLOOD ORDERABLES Torie l Result * DXA Screening (09/03/2024) Anatomical Region Laterality Modality Bone Density Bone Density 09/03/2024 Impressions 09/03/2024 10:30 AM EDT Osteopenia Rikki Jorgensen SHELL MACHINE OPERATOR IMG BD BONE DENSITY DEXA Edited Result - Final * COLONOSCOPY FOR RESULT ENTRY ONLY (05/20/2021) Historical Provider HEALTH MAINTENANCE Final Result * Hepatitis C antibody, qualitative (09/03/2019 11:44 AM EDT) HCV NON-REACTIV E NON-REACTI VE [facility] Blood 09/03/2019 11:4 4 AM EDT 09/03/2019 11:51 AM EDT Yamini Das NP LAB BLOOD ORDERABLES Final Resu lt [address] [id number] from Last 3 Months or Most Recently Relevant to Health Maintenance [facility] [address] [place] [address] [facility] Member Subscriber Plan / Payer (Ef fective 2017-Present) Name:Lila JOSEPH Relation to Subscriber:Self Name:Lila JOSEPH Payer ID:Not on file Type:HMO Address: [place] [id number] Care Teams Performance Reporter Relationship Specialty Start Date End Date Randolph Tomlinson PA-C [address] [place] [phone] [email or web address] PCP - General Physician Field Secretary 01/06/25 Additional Source Comments The information contained in this document represents components of the legal health record. It is not the complete legal health record.[facility]
--- OUTSIDE RECORDS SUMMARY | 2025-08-18 13:20 | XMS_ITS | Patient Health Record ---
Author Organization [facility] Address [address] [place] [address] Care Team Providers Care Director Of Curriculum Name Role Phone Pippa SERRATO, Yamini Primary Care Provider Hebert Munoz Jr Unavailable [phone] Reason For Referral No Information Medications [...] Problem Status W/U Status Risk Notes Problem 145760647 Colon cancer screening (Z12.11) Active confirmed Problem 504037134 Encounter for other preprocedural examination (Z01.818) Active confirmed Problem History of polyp of colon (situation) (561177407) History of colon polyps (Z86.010) Active confirmed Problem 451302741 Gas (R14.3) Active confirmed Problem 098053742 Family history o f colon cancer (Z80.0) Active confirmed Plan Of Treatment Future Test Test Name Order Date COLONOSCOPY 12/29/2015 COLONOSCOPY 05/02/2021 Insurance Providers Payer Name Payer Address Payer Phone Subscriber Number Group Number Insured Name Patient Relationship to Insured Coverage Start Date Coverage End Date [facility] [address] [place] [phone] [id number] ROSETTE FONG Self - patient is the insured Medical (General) History Medical History History ICD Code /, personal history of tubular adenomas and family history colon cancer, five-year followup elevated cholesterol depression asthma Surgical History Surgery Date(Month/Year) eye surgery knee surgery-right
== END 2025-08-18 10:49 | disposition home or self-care (01) ==
LOC: HO.LAB 10:48
PROVIDERS: PCP Physician Assistant Surgical; Visit Provider Internal Medicine
DX: R07.2 Precordial pain (principal)
CPT/HCPCS: 36415; 80048

== ENCOUNTER 2025-10-13 14:36 | Outpatient (AMB) | payer OTHER, SELFPAY ==
[2025-10-13 14:48] VITALS: BP 126/64; PULSE 95
--- NOTE | 2025-10-13 14:48 | MHC.OFFVIS ---
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 Patient was previously seen in the office for chest pain for which patient underwent an echo, stress echocardiogram and is now status post coronary CTA. Today, patient is reporting feeling well overall without any cardiac symptoms of exertional chest pain, shortness of breath, palpitations, dizziness, orthopnea, PND, leg edema, presyncope, or syncope. PFSH Medical History Low back pain Arthritis Elevated cholesterol Asthma Surgical History Hx of colonoscopy History of total right knee replacement H/O eye surgery Family History Father Colon cancer Brother Hx of CABG Social History Alcohol intake: current Alcohol intake frequency: a few times a month Patient Tobacco Use Status: Never used Tobacco Review of Systems Const Denies daytime sleepiness, Denies difficulty sleeping, Denies snoring, Denies stops breathing during sleep and Denies weakness Card Denies chest pain, Denies rapid heart rate, Denies irregular heart rhythm, Denies claudication, Denies leg edema, Denies lightheadedness, Denies palpitations, Reports dyspnea, Denies dyspnea on exertion, Denies orthopnea, Denies paroxysmal nocturnal dyspnea and Denies slow heart rate Resp Denies cough, Reports dyspnea, Denies dyspnea on exertion and Denies snoring GI Reports no additional complaints, Denies hematochezia, Denies change in stool character and Denies dyspepsia Musc Denies abnormal gait, Denies muscle weakness and Denies numbness Neuro Denies abnormal gait, Denies numbness and Denies weakness Endo Denies palpitations Physical Exam Vital Signs: Last Vital Signs Pulse 95 10/13/25 14:48 BP 126/64 10/13/25 14:48 Const General: cooperative, healthy appearing, comfortable and no acute distress Orientation/consciousness: patient oriented x3 HEENT Head: Yes normal to inspection Neck Neck: Yes normal visual inspection, Yes trachea midline and Yes supple Chest Chest palpation & inspection: normal inspection of the chest Resp Effort & Inspection: normal respiratory effort Auscultation: clear to auscultation bilaterally, no crackles, no rales, no rhonchi and no wheezes Cardio Jugular venous distension: no JVD Palpation: normal PMI Rate: regular rate Rhythm: regular rhythm Heart sounds: S1 normal heart sound present, S2 normal heart sound present, no click, no gallops, no murmurs and no rubs Peripheral pulses: Peripheral pulses 2+ throughout GI Inspection: Yes normal to inspection Palpation (GI): Soft to palpation Auscultation: normal bowel sounds Skin General skin exam: no rashes or lesions noted Neuro General: patient oriented x3 Extrem General: Yes normal to inspection, No no pedal edema and No calf tenderness Psych Appearance: grossly normal Mental Status: mental status grossly normal Speech and movement: Normal speech and movement present Assessment & Plan Assessment & Plan (1) Precordial chest pain: Code(s): R07.2 - Precordial pain Category: Medical Plan: 04/02/2025-echo study showed a normal LV systolic function with the ejection fraction at 50% with no wall motion abnormalities. 04/22/2025-patient underwent a stress echocardiogram that was negative for ischemia. 09/02/2025-coronary CTA showed no significant coronary artery disease. Incidentally found to have a PFO. Pathophysiology of PFO discussed with the patient. No specific treatment indicated at this time. Given her resolution of symptoms and above testing, no further indications for testing at this time. Continue statin therapy. Advised on heart healthy diet, regular exercise, losing weight, med compliance, and management of vascular risk factors. Follow up on an as-needed basis. In the interim, patient will call the office with any concerns or change in symptoms. This note was generated using voice recognition software. While every effort has been made to ensure accuracy and proper administrative judge, there may be occasional errors that could affect the content or meaning of the described symptoms. Coding Level of Care Code Est Pt Level 3 (63467) Complex EM visit Add On G2211 Diagnoses Precordial chest pain R07.2 Time Spent (min) 29 Comment Time spent in reviewing the chart, test results, assessment, counseling and documentation.
--- OUTSIDE RECORDS SUMMARY | 2025-10-14 12:26 | XMS_ITS | Clinical Summary ---
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 16 g 5 Active rosuvastatin (CRESTOR) 10 MG tabletIndications :Elevated LDL cholesterol level Take 1 tablet (10 mg total) by mouth daily. 90 tablet 3 5 Active Active Problems Problem Noted Date [...] would like to have this done at [facility] -Echocardiogram patient would like to have this done at [facility]. Assessment & Plan (02/27/2025 1:35 PM [...] Encounters Date Type Department Care Team Description 08/19/2025 Orders Only [facility] [address] [place] [address] Provider, MD Stevan 07/21/2025 Refill [facility] [address] [place] [address] Randolph Tomlinson, RAFITA Medication Refill from Last 3 Months Immunizations Immunization Administration [...] your housing situation today? I have tanya swann 01/06/2025 How many times have you move [...] Description 01/12/2026 2:40 PM EST Office Visit [facility] [address] [place] [address] Randolph Tomlinson PA-C [address] [place] [address] [email or web address] Health Maintenance Due Date Last Done Comments PNEUMOCOCCAL VACCINES (50+ years) (1 of 2 - PCV) 1977 COLOGUARD 2003 FIT TEST 2003 FOBT 2003 SIGMOIDOSCOPY 2003 VIRTUAL COLONOSCOPY 2003 RSV VACCINE (1 - Risk 50-74 years 1-dose series) 02/22/2008 INFLUENZA VACCINE (#1) 2025 , 08/25/2019, 11/04/2018, Additional history exists COVID-19 VACCINE (3 - season) 2025 03/31/2021, 03/03/2021 DEPRESSION SCREENING 01/06/2026 [...] Name Priority Date/Time Associated Diagnosis Comments OUTSIDE LAB Routine 08/18/2025 11:32 AM EDT HM MAMMOGRAPHY Routine 01/22/2025 8:05 AM EST OUTSIDE HDL Routine 01/20/2025 BD DXA SCREENING Routine 09/03/2024 Health care maintenance Menopause COLONOSCOPY FOR RESULT ENTRY ONLY Routine 05/20/2021 HEPATITIS C ANTIBODY, QUALITATIVE Routine 09/03/2019 11:44 AM EDT Encounter for screening for HIV from Last 3 Months or Most Recently Relevant to Health Maintenance Results * Outside Lab (08/18/2025 11:32 AM EDT) us Historical Provider LAB BLOOD BKR ORDERABLES Final Result * HM MAMMOGRAPHY FOR RESULT ENTRY ONLY (01/22/2025 8:05 AM EST) us Historical Provider HEALTH MAINTENANCE Final Result * Outside HDL (01/20/2025) HDL - External 54 40 - 80 mg/dL Historical Provider LAB BLOOD ORDERABLES Torie l Result * DXA Screening (09/03/2024) Anatomical Region Laterality Modality Bone Density Bone Density 09/03/2024 Impressions 09/03/2024 10:30 AM EDT Osteopenia Rikki Jorgensen [employer] IMG BD BONE DENSITY DEXA Edited Result - Final * HM COLONOSCOPY FOR RESULT ENTRY ONLY (05/20/2021) Historical Provider HEALTH MAINTENANCE Final Result * Hepatitis C antibody, qualitative (09/03/2019 11:44 AM EDT) Pathologist [facility] HCV NON-REACTIV E NON-REACTI VE [facility] Blood 09/03/2019 11:4 4 AM EDT 09/03/2019 11:51 AM EDT Yamini Das NP LAB BLOOD BKR ORDERABLES Final Result Performing Organization Address City/State/[facility] Co de Phone Number [facility] [address] [place] [address] from Last 3 Months or Most Recently Relevant to Health Maintenance Insurance [facility] [address] [place] [address] [address] [place] [address] [place] [address] [address] [place], [place] [address] [facility]MO [facility] Address: [address] [address] Care Teams Bulk Tank Car Unloader Relationship Specialty Start Date End Date Randolph Tomlinson PA-C [address] [place] [address] [email or web address] PCP - General Physician Change House Attendant 01/06/25 Additional Source Comments The information contained in this document represents components of the legal health record. It is not the complete legal health record.[facility]
== END 2025-10-13 15:08 | disposition home or self-care (01) ==
LOC: HO.HCS 14:37
PROVIDERS: PCP Physician Assistant Surgical
DX: R07.2 Precordial pain (principal)
CPT/HCPCS: 99213; G2211